=== PATIENT | male | born 1950 | race American Indian/Alaskan Native ===

== ENCOUNTER 2017-12-02 06:20 | Inpatient (IN) | payer MEDICARE ==
[2017-12-02] MEDS ORDERED: ASPIRIN PO ONE (06:44)
[2017-12-02] MEDS ORDERED: DUONEB *Not for PRN Use IH ONE (06:45)
--- NOTE | 2017-12-02 06:45 | Emergency Department Report ---
ED Shortness of Breath HPI - General Stated Complaint: ASYA Time Seen by Provider: 12/02/17 06:38 Source: patient, EMS Mode of arrival: Stretcher Limitations: No Limitations - History of Present Illness Initial Comments: Arlette and is a 67-year-old male with no known past medical history and no medications presents to the emergency room via EMS for hypoxic and shortness of breath. Patient was given albuterol route by EMS. Patient states she has a long smoking history. Patient states she has never been diagnosed as COPD or asthma. Patient states he can get a deep breath. Patient denies fever and chills. Patient also complains of a new onset of cough. Patient states the cough is dry and nonproductive. Patient states all the symptoms started this morning. MD Complaint: shortness of breath -: Sudden Severity: severe Pain Scale: 0 Consistency: constant Improves With: oxygen, bronchodilators, upright position Worsens With: lying flat, exertion, coughing, inspiration Associated Symptoms: cough, orhopnia Treatments Prior to Arrival: oxygen, bronchodilator - Related Data Home Oxygen Therapy: No Home Medications Medication Instructions Recorded Confirmed Last Taken No Known Home Medications [No 12/02/17 12/02/17 Unknown Reported Home Medications] Allergies Allergy/AdvReac Type Severity Reaction Status Date / Time No Known Allergies Allergy Verified 12/02/17 12:50 ED Review of Systems ROS: Stated complaint: ASYA Other details as noted in HPI Constitutional: denies: chills, fever Eyes: denies: eye pain, eye discharge, vision change ENT: denies: ear pain, throat pain Respiratory: cough, orthopnea, shortness of breath, SOB with exertion, SOB at rest. denies: wheezing Cardiovascular: denies: chest pain, palpitations Endocrine: no symptoms reported Gastrointestinal: denies: abdominal pain, nausea, diarrhea Genitourinary: denies: urgency, dysuria Musculoskeletal: denies: back pain, joint swelling, arthralgia Skin: denies: rash, lesions Neurological: denies: headache, weakness, paresthesias Psychiatric: denies: anxiety, depression Hematological/Lymphatic: denies: easy bleeding, easy bruising ED Past Medical Hx - Past Medical History Previous Medical History?: No - Surgical History Past Surgical History?: No - Family History Family history: no significant - Social History Smoking Status: Current Every Day Smoker Substance Use Type: None - Medications Home Medications: Home Medications Medication Instructions Recorded Confirmed Last Taken Type No Known Home Medications [No 12/02/17 12/02/17 Unknown History Reported Home Medications] ED Physical Exam - General Limitations: No Limitations General appearance: alert, in no apparent distress - Head Head exam: Present: atraumatic, normocephalic - Eye Eye exam: Present: normal appearance, PERRL, EOMI Pupils: Present: normal accommodation - ENT ENT exam: Present: mucous membranes moist - Neck Neck exam: Present: normal inspection - Respiratory Respiratory exam: Present: normal lung sounds bilaterally, respiratory distress , wheezes, rales, accessory muscle use, decreased breath sounds, prolonged expiratory - Cardiovascular Cardiovascular Exam: Present: regular rate, normal rhythm. Absent: systolic murmur, diastolic murmur, rubs, gallop - GI/Abdominal GI/Abdominal exam: Present: soft, normal bowel sounds - Rectal Rectal exam: Present: deferred - Extremities Exam Extremities exam: Present: normal inspection - Back Exam Back exam: Present: normal inspection - Neurological Exam Neurological exam: Present: alert, oriented X3 - Psychiatric Psychiatric exam: Present: normal affect, normal mood - Skin Skin exam: Present: warm, dry, intact, normal color. Absent: rash ED Course Vital Signs 12/02/17 12/02/17 12/02/17 06:34 06:41 06:46 Temperature 98.6 F Pulse Rate 103 H 102 H 105 H Pulse Rate [ Anterior Bilateral Throughout] Respiratory 28 H 26 H 24 Rate Respiratory Rate [Anterior Bilateral Throughout] Blood Pressure 186/104 181/97 O2 Sat by Pulse 87 89 96 Oximetry 12/02/17 12/02/17 12/02/17 06:53 07:00 07:15 Temperature Pulse Rate 100 H 101 H Pulse Rate [ 101 H Anterior Bilateral Throughout] Respiratory 26 H 24 Rate Respiratory 18 Rate [Anterior Bilateral Throughout] Blood Pressure 186/104 180/93 O2 Sat by Pulse 96 95 Oximetry 12/02/17 12/02/17 12/02/17 07:30 07:45 08:00 Temperature Pulse Rate 97 H 95 H 95 H Pulse Rate [ Anterior Bilateral Throughout] Respiratory 24 22 21 Rate Respiratory Rate [Anterior Bilateral Throughout] Blood Pressure 181/96 183/94 180/98 O2 Sat by Pulse 98 96 95 Oximetry 12/02/17 08:15 Temperature Pulse Rate 95 H Pulse Rate [ Anterior Bilateral Throughout] Respiratory 20 Rate Respiratory Rate [Anterior Bilateral Throughout] Blood Pressure 191/103 O2 Sat by Pulse 95 Oximetry - Reevaluation(s) Reevaluation #1: 12/02/17 07:17 Oxygenation has improved and working breathing has improved. Lungs are clear to auscultation except for matthias lower rales. . Patient improving 12/02/17 10:34 Reevaluation #2: Hospitalist contacted for admission. Hospitalist to assume care of the patient. Discussed plan of care with patient and patient agrees to admission and plan of care. Discussed all results with patient 12/02/17 10:16 ED Medical Decision Making - Lab Data Result diagrams: 12/02/17 07:11 12/02/17 07:11 - EKG Data -: EKG Interpreted by Me EKG shows normal: sinus rhythm, axis, intervals, QRS complexes, ST-T waves Rate: tachycardia - EKG Data Interpretation: LVH - Radiology Data Radiology results: report reviewed, image reviewed cxr - nl. ct chest reviewed. - Medical Decision Making She is 67-year-old male presents emergency room with shortness of breath and hypoxia. Patient found to have congestive heart failure and possible COPD exacerbation. Patient did not have these previous diagnosis. Patient will be admitted to the hospitalist service for further evaluation and treatment. - Differential Diagnosis . acs. chf, sob. copd. copd exac. Hypoxia Critical Care Time: Yes Critical care attestation.: If time is entered above; I have spent that time in minutes in the direct care of this critically ill patient, excluding procedure time. Critical Care Time: 45 minutes spent for critical care time ED Disposition Clinical Impression: Hypoxia, Shortness of breath, Cough, Elevated d-dimer, Elevated troponin, Elevated brain natriuretic peptide (BNP) level, COPD exacerbation Congestive heart failure Qualifiers: Heart failure type: unspecified Heart failure chronicity: acute Qualified Code( s): I50.9 - Heart failure, unspecified Disposition: OP ADMIT IP TO THIS HOSP Is pt being admited?: Yes Does the pt Need Aspirin: No Condition: Critical Time of Disposition: 10:00
--- NOTE | 2017-12-02 07:02 | XRay Report ---
FINAL REPORT EXAM: XR CHEST 1V AP HISTORY: Dyspnea TECHNIQUE: A portable upright view of the chest was submitted FINDINGS: The heart size and vascularity appear normal. There are no localized infiltrates or effusions. There are EKG leads overlying the chest wall. The bones soft tissues do not show any acute changes. IMPRESSION: No active chest disease.
[2017-12-02 07:24] LABS: Basophils % (Auto) 0.3 % (0.0-1.8); Eosinophils # (Auto) 0.1 K/mm3 (0.0-0.4); Hematocrit 44.4 % (35.5-45.6); Hemoglobin 15.1 gm/dl (11.8-15.2); Lymphocytes # (Auto) 1.6 K/mm3 (1.2-5.4); Lymphocytes % (Auto) 13.3 % (13.4-35.0); Mean Corpuscular HGB Conc 34 % (32-34); Mean Corpuscular Hemoglobin 33 pg (28-32); Mean Corpuscular Volume 96 fl (84-94); Platelet Count 225 K/mm3 (140-440); Red Blood Count 4.63 M/mm3 (3.65-5.03); Red Cell Distribution Width 13.2 % (13.2-15.2)
[2017-12-02 07:36] LABS: INR 0.93 (0.87-1.13); Partial Thromboplastin Time 33.9 Sec. (24.2-36.6)
[2017-12-02 07:43] LABS: Creatine Kinase MB 2.1 ng/mL (0.0-4.0)
[2017-12-02 07:45] LABS: Alanine Aminotransferase 13 units/L (7-56); Albumin 3.7 g/dL (3.9-5); BUN/Creatinine Ratio 11; Blood Urea Nitrogen 14 mg/dL (9-20); Hemolysis Index 4
[2017-12-02 07:57] LABS: Chol/HDL Ratio 4.82 %; HDL Cholesterol 40 mg/dL (40-59); LDL Cholesterol,Direct 156 mg/dL (50-130)
--- NOTE | 2017-12-02 09:47 | Cat Scan Report ---
FINAL REPORT EXAM: CT ANGIO CHEST HISTORY: sob COMPARISON: Chest radiograph performed on 12/02/2017 TECHNIQUE: Multiple contiguous axial images were obtained from the thoracic inlet to the upper abdomen after administration of IV contrast. Reformatted sagittal and coronal images were available for review. FINDINGS: Medical devices: None. Thyroid: Normal. Lymph nodes: Pretracheal and prevascular lymphadenopathy, measuring up to 1.3 centimeters in short axis. Vasculature: The main pulmonary artery and its branches are patent, without evidence of pulmonary embolism. There is a normal caliber of the thoracic aorta with a conventional branching pattern of the aortic arch. Heart: Normal heart size. Mild coronary artery calcifications. Other mediastinal structures: Small hiatal hernia. Lung parenchyma: Peribronchovascular ground-glass opacities in the right upper lobe. Areas of atelectasis in the bilateral lower lobes. Airways: Patent. No bronchiectasis. Pleura: Trace bilateral pleural effusions. Chest wall and spine: No suspicious osseous lesions. No acute fracture or dislocation. Upper Abdomen: Calcified gallstones. No pericholecystic fluid or gallbladder wall thickening.. IMPRESSION: Peribronchovascular ground-glass opacities in the right upper lobe. Findings may represent infectious infiltrate versus focal edema. Pulmonary edema isolated to the right upper lobe can be seen in the setting of mitral valve regurgitation. Trace bilateral pleural effusions with associated atelectasis. Pretracheal and prevascular lymphadenopathy, likely reactive. Cholelithiasis without evidence for cholecystitis.
[2017-12-02] MEDS ORDERED: LASIX IV ONE (10:16)
[2017-12-02] MEDS ORDERED: ZOFRAN IV PRN (12:43)
[2017-12-02] MEDS ORDERED: PERCOCET 5/325 PO PRN (12:43)
[2017-12-02] MEDS ORDERED: TYLENOL PO PRN (12:43)
[2017-12-02] MEDS ORDERED: SODIUM CHLORIDE FLUSH SYRINGE 10 ML IV PRN (12:43)
[2017-12-02] MEDS ORDERED: ZITHROMAX 500 MG in NACL 0.9% 250ML 250 ML IV ONE (12:48)
[2017-12-02] MEDS ORDERED: LOVENOX SUB-Q ONE (14:19)
[2017-12-02] MEDS: LOVENOX SUB-Q SCH (14:25)
[2017-12-02] MEDS: DUONEB *Not for PRN Use IH SCH ×2 (16:36→20:16)
--- NOTE | 2017-12-02 20:22 | History and Physical Report ---
History of Present Illness Date of examination: 12/02/17 Date of admission: 12/02/17 10:31 Chief complaint: Shortness of breath History of present illness: Patient is a 67-year-old male without any significant past medical history. Patient states at some time he was told he had hypertension but was no longer taking any since for this. Over the past week patient has had a progressive shortness of breath. At this particular time he says it was not associated with coughing. Patient describes shortness of breath more as dyspnea on exertion. Walking to the car. Walking outside when it was hot. States symptoms progressively got worse and he had to come to the emergency room. Upon ER visit patient was found to be in hypoxic respiratory failure. He received oxygen nebulizers and a course of diuretics and in fact he feels much better today. Paste and resting comfortably in bed on 2 L of oxygen. Sats are 97%. Patient denies any time chest pain no orthopnea no PND. Patient denies productive cough denies sick contacts. Patient states he was his normal state of health until a week ago. Past History Past Medical History: denies: acute HI, atrial fib, arrhythmia, anemia, arthritis, CAD, cancer, COPD, diabetes, ESRD, heart failure, hepatitis, PVD, pulmonary embolism Past Surgical History: No surgical history Social history: single, lives with family, smoking, full code. denies: alcohol abuse, prescription drug abuse Family history: hypertension Medications and Allergies Allergies Allergy/AdvReac Type Severity Reaction Status Date / Time No Known Allergies Allergy Verified 12/02/17 12:50 Home Medications Medication Instructions Recorded Confirmed Last Taken Type No Known Home Medications [No 12/02/17 12/02/17 Unknown History Reported Home Medications] Active Meds: Active Medications Acetaminophen (Tylenol) 650 mg PO Q4H PRN PRN Reason: Pain MILD(1-3)/Fever >100.5/CISNEROS Albuterol/Ipratropium (Duoneb *Not For Prn Use*) 1 ampul IH Q6HRT [facility] Last Admin: 12/02/17 20:16 Dose: 1 ampul Enoxaparin Sodium (Lovenox) 40 mg SUB-Q QDAY [facility] Last Admin: 12/02/17 14:25 Dose: 40 mg Famotidine (Pepcid) 10 mg PO BID [facility] Methylprednisolone Sodium Succinate (Solu-Medrol) 40 mg IV Q12HR [facility] Last Admin: 12/02/17 14:25 Dose: 40 mg Ondansetron HCl (Zofran) 4 mg IV Q8H PRN PRN Reason: Nausea And Vomiting Oxycodone/Acetaminophen (Percocet 5/325) 1 tab PO Q6H PRN PRN Reason: Pain, Moderate (4-6) Sodium Chloride (Sodium Chloride Flush Syringe 10 Ml) 10 ml IV BID [facility] Sodium Chloride (Sodium Chloride Flush Syringe 10 Ml) 10 ml IV PRN PRN PRN Reason: LINE FLUSH Review of Systems Constitutional: fatigue, weakness, no weight loss, no weight gain, no fever, no chills, no sweats, no night sweats, no anorexia, no malaise, no lethargy, no chronic headaches, no poor appetite, no daytime sleepiness, no chronic pain Ears, nose, mouth and throat: no ear pain, no ear discharge, no decreased hearing, no nose pain, no epistaxis, no bleeding gums, no dysphagia, no hoarseness, no swelling in throat, no post-nasal drip, no vertigo, no pain front of neck, no neck fullness/pressure Cardiovascular: shortness of breath, dyspnea on exertion, high blood pressure, decreased exercise tolerance, no chest pain, no orthopnea, no palpitations, no rapid/irregular heart beat, no edema, no syncope, no lightheadedness, no paroxysmal nocturnal dyspnea, no claudication, no phlebitis, no leg edema Respiratory: shortness of breath, dyspnea on exertion, no cough, no cough with sputum, no excessive sputum, no hemoptysis, no congestion, no wheezing, no pain , no sleep apnea, no respiratory infections Gastrointestinal: no vomiting, no diarrhea, no constipation, no change in bowel habits, no BRBPR, no melena, no heartburn, no excessive gas, no early satiety Rectal: no incontinence, no discharge Musculoskeletal: morning stiffness, muscle weakness, no neck pain, no shooting arm pain, no low back pain, no shooting leg pain, no leg numbness/tingling, no hot joints, no frequent falls, no loss of height, no arthritis Integumentary: no unusual bruising Neurological: weakness, no paralysis, no numbness, no tingling, no syncope, no headaches, no convulsions, no change in mentation, no changes in smell/taste, no gait dysfunction, no double vision, no hearing difficulties Psychiatric: no memory loss, no change in sleep habits, no sleep disturbances, no insomnia, no hypersomnia, no suicidal ideation, no disorientation, no paranoia, no depression, no anxiety attacks, no confusion, no irritability, no sadness/tearfullness Endocrine: no cold intolerance, no polyphagia, no excessive thirst, no excessive sweating, no increase in ring/shoe/hat size, no palpatations, no other Hematologic/Lymphatic: no thrombophilia Allergic/Immunologic: no persistent infections Exam - Constitutional Vitals: Temp Pulse Resp BP Pulse Ox 98.6 F 95 H 20 191/103 95 12/02/17 06:41 12/02/17 08:15 12/02/17 08:15 12/02/17 08:15 12/02/17 08:15 General appearance: Present: no acute distress, well-nourished - EENT Eyes: Present: PERRL. Absent: discharge ENT: hearing intact, clear oral mucosa, poor dentition, no thrush, no ulcerations - Neck Neck: Present: supple, normal ROM. Absent: enlarged thyroid - Respiratory Respiratory effort: normal Respiratory: bilateral: diminished, rales (bilateral radials and rhonchi.) - Cardiovascular Rhythm: regular Heart Sounds: Present: S1 & S2. Absent: rub, click - Extremities Extremities: pulses symmetrical, No edema, normal temperature, normal color, Full ROM Peripheral Pulses: within normal limits - Abdominal General gastrointestinal: Present: soft, non-tender, non-distended, normal bowel sounds Male genitourinary: Present: normal - Integumentary Integumentary: Present: clear, warm, dry - Musculoskeletal Musculoskeletal: gait normal, strength equal bilaterally - Psychiatric Psychiatric: appropriate mood/affect, intact judgment & insight - Neurologic Neurologic: CNII-XII intact, moves all extremities Results - Labs CBC & Chem 7: 12/02/17 07:11 12/02/17 07:11 Labs: Laboratory Last Values WBC 12.3 K/mm3 (4.5-11.0) H 12/02/17 07:11 RBC 4.63 M/mm3 (3.65-5.03) 12/02/17 07:11 Hgb 15.1 gm/dl (11.8-15.2) 12/02/17 07:11 Hct 44.4 % (35.5-45.6) 12/02/17 07:11 MCV 96 fl (84-94) H 12/02/17 07:11 MCH 33 pg (28-32) H 12/02/17 07:11 MCHC 34 % (32-34) 12/02/17 07:11 RDW 13.2 % (13.2-15.2) 12/02/17 07:11 Plt Count 225 K/mm3 (140-440) 12/02/17 07:11 Lymph % (Auto) 13.3 % (13.4-35.0) L 12/02/17 07:11 Gem % (Auto) 8.0 % (0.0-7.3) H 12/02/17 07:11 Eos % (Auto) 1.0 % (0.0-4.3) 12/02/17 07:11 Baso % (Auto) 0.3 % (0.0-1.8) 12/02/17 07:11 Lymph # 1.6 K/mm3 (1.2-5.4) 12/02/17 07:11 Gem # 1.0 K/mm3 (0.0-0.8) H 12/02/17 07:11 Eos # 0.1 K/mm3 (0.0-0.4) 12/02/17 07:11 Baso # 0.0 K/mm3 (0.0-0.1) 12/02/17 07:11 Seg Neutrophils % 77.4 % (40.0-70.0) H 12/02/17 07:11 Seg Neutrophils # 9.5 K/mm3 (1.8-7.7) H 12/02/17 07:11 PT 12.9 Sec. (12.2-14.9) 12/02/17 07:11 INR 0.93 (0.87-1.13) 12/02/17 07:11 APTT 33.9 Sec. (24.2-36.6) 12/02/17 07:11 D-Dimer 441.69 ng/mlDDU (0-234) H 12/02/17 07:11 Sodium 143 mmol/L (137-145) 12/02/17 07:11 Potassium 3.6 mmol/L (3.6-5.0) 12/02/17 07:11 Chloride 103.1 mmol/L (98-107) 12/02/17 07:11 Carbon Dioxide 27 mmol/L (22-30) 12/02/17 07:11 Anion Gap 17 mmol/L 12/02/17 07:11 BUN 14 mg/dL (9-20) 12/02/17 07:11 Creatinine 1.3 mg/dL (0.8-1.5) 12/02/17 07:11 Estimated GFR > 60 ml/min 12/02/17 07:11 BUN/Creatinine Ratio 11 % 12/02/17 07:11 Glucose 119 mg/dL (75-100) H 12/02/17 07:11 Lactic Acid 2.40 mmol/L (0.7-2.0) H* 12/02/17 07:11 Calcium 9.0 mg/dL (8.4-10.2) 12/02/17 07:11 Total Bilirubin 0.30 mg/dL (0.1-1.2) 12/02/17 07:11 AST 17 units/L (5-40) 12/02/17 07:11 ALT 13 units/L (7-56) 12/02/17 07:11 Alkaline Phosphatase 52 units/L (35-129) 12/02/17 07:11 Total Creatine Kinase 106 units/L (55-170) 12/02/17 07:11 CK-MB (CK-2) 2.1 ng/mL (0.0-4.0) 12/02/17 07:11 CK-MB (CK-2) Rel Index 1.9 (0-4) 12/02/17 07:11 Troponin T 0.032 ng/mL (0.00-0.029) H 12/02/17 07:11 NT-Pro-B Natriuret Pep 2428 pg/mL (0-900) H 12/02/17 07:11 Total Protein 8.1 g/dL (6.3-8.2) 12/02/17 07:11 Albumin 3.7 g/dL (3.9-5) L 12/02/17 07:11 Albumin/Globulin Ratio 0.8 % 12/02/17 07:11 Triglycerides 82 mg/dL (2-149) 12/02/17 07:11 Cholesterol 193 mg/dL (50-199) 12/02/17 07:11 LDL Cholesterol Direct 156 mg/dL (50-130) H 12/02/17 07:11 HDL Cholesterol 40 mg/dL (40-59) 12/02/17 07:11 Cholesterol/HDL Ratio 4.82 % 12/02/17 07:11 Assessment and Plan Advance Directives: Yes VTE prophylaxis?: Chemical Plan of care discussed with patient/family: Yes - Patient Problems (1) COPD exacerbation Current Visit: Yes Status: Acute Plan to address problem: At present unable to really identify exact cause of patient's shortness of breath. Most likely multifactorial. I think COPD and his [id number] history placed some role. We'll continue nebulizers oxygen steroids. Would treat with empiric antibiotics. CT scan showed ground glass appearance in this possibly could be infectious therefore add broad-spectrum antibiotic azithromycin. Patient does not appear acutely septic at this time. Treat with supportive care antipyretics broad-spectrum antibiotics (2) Congestive heart failure Current Visit: Yes Status: Acute Qualifiers: Heart failure type: unspecified Heart failure chronicity: acute Qualified Code(s): I50.9 - Heart failure, unspecified (3) Elevated brain natriuretic peptide (BNP) level Current Visit: Yes Status: Acute (4) Elevated d-dimer Current Visit: Yes Status: Acute (5) Shortness of breath Current Visit: Yes Status: Acute Plan to address problem: Multifactorial seee acute hospital hypoxic respiratory failure will take a multivitamin dimension approach including treatment of COPD treatment of congestive heart failure caused by malignant hypertension. (6) Acute and chronic respiratory failure with hypoxia Current Visit: Yes Status: Acute Plan to address problem: Patient respiratory failure most likely multifactorial. Smoking and COPD as well as malignant hypertension causing cardiac heart failure and congestive heart failure. Patient with elevated BNP will need to follow-up echocardiogram results and be more aggressive blood pressure control. (7) Malignant hypertension w/o heart disease, with chronic kidney disease Current Visit: Yes Status: Acute Plan to address problem: At present patient has malignant hypertension. I think this is most likely etiology to cause patient's heart failure and pulmonary edema. While we're treating for infection would also add diuretics, Solu-Medrol 02. Add labetalol 50 mg twice a day hydralazine when necessary in losartan 100 mg daily. Titrate blood pressure medications accordingly.
[2017-12-02] MEDS: COZAAR PO SCH (21:22)
[2017-12-02] MEDS: PEPCID PO SCH (21:22)
[2017-12-02] MEDS: LOPRESSOR PO SCH (21:22)
[2017-12-02] MEDS: SODIUM CHLORIDE FLUSH SYRINGE 10 ML IV SCH (21:23)
[2017-12-03] MEDS: DUONEB *Not for PRN Use IH SCH ×2 (03:14→08:52)
[2017-12-03 06:30] LABS: Basophils % (Auto) 0.1 % (0.0-1.8); Hematocrit 40.9 % (35.5-45.6); Lymphocytes # (Auto) 0.8 K/mm3 (1.2-5.4); Lymphocytes % (Auto) 8.3 % (13.4-35.0); Mean Corpuscular HGB Conc 34 % (32-34); Mean Corpuscular Hemoglobin 33 pg (28-32); Mean Corpuscular Volume 96 fl (84-94); Monocytes # (Auto) 0.6 K/mm3 (0.0-0.8); Monocytes % (Auto) 5.9 % (0.0-7.3); Platelet Count 210 K/mm3 (140-440); Red Blood Count 4.27 M/mm3 (3.65-5.03); Red Cell Distribution Width 13.5 % (13.2-15.2)
[2017-12-03 06:56] LABS: Albumin 3.5 g/dL (3.9-5); Calcium 8.8 mg/dL (8.4-10.2)
[2017-12-03] MEDS: COZAAR PO SCH (10:28)
[2017-12-03] MEDS: LOPRESSOR PO SCH ×2 (10:29→21:34)
[2017-12-03] MEDS: LOVENOX SUB-Q SCH ×2 (10:29→21:34)
[2017-12-03] MEDS: PEPCID PO SCH ×2 (10:29→21:34)
[2017-12-03] MEDS: SODIUM CHLORIDE FLUSH SYRINGE 10 ML IV SCH ×2 (10:30→21:35)
--- NOTE | 2017-12-03 12:09 | Progress Note ---
Assessment and Plan Patient is a 67-year-old male without any significant past medical history. Patient states at some time he was told he had hypertension but was no longer taking any since for this. Over the past week patient has had a progressive shortness of breath. At this particular time he says it was not associated with coughing. Patient describes shortness of breath more as dyspnea on exertion. Walking to the car. Walking outside when it was hot. States symptoms progressively got worse and he had to come to the emergency room. Upon ER visit patient was found to be in hypoxic respiratory failure. He received oxygen nebulizers and a course of diuretics and in fact he feels much better today. Paste and resting comfortably in bed on 2 L of oxygen. Sats are 97%. Patient denies any time chest pain no orthopnea no PND. Patient denies productive cough denies sick contacts. Patient states he was his normal state of health until a week ago. - Systolic Congestive heart failure Has elevated BNP of 2428 Strict input and outputs, daily weights, Frandy and beta zach, diuresis Echo showed ejection fraction of 45-50% with mildly reduced systolic function -Elevated d-dimer CT chest negative for pulmonary embolism - Shortness of breath Most likely secondary to systolic heart failure To continue with diuresis, - Acute and chronic respiratory failure with hypoxia Patient respiratory failure most likely multifactorial. Smoking and COPD as well as malignant hypertension causing cardiac heart failure and congestive heart failure. Patient with elevated BNP will need to follow-up echocardiogram results and be more aggressive blood pressure control. - Atrial fibrillation Recorded on the morning to- 12/02/2017 With fully anticoagulate - Malignant hypertension w/o heart disease, - cardiomegaly Continue ACEI and spironolactone - Acute kidney injury predominantly prerenal Monitor BUN and creatinine. - Lactic acidosis Patient has no fever or leukocytosis We will trend lactic acid level - DVT prophylaxis with Lovenox and GI with Pepcid Subjective Date of service: 12/03/17 Principal diagnosis: shortness of breath, systolic of heart failure, Interval history: Patient still has shortness of breath. Objective - Exam Narrative Exam: Constitutional: Well-nourished well-developed. Morbidly obese. In no distress Head: Normocephalic atraumatic Eyes: Pupils are equal round and reactive to light Nose: No enlarged turbinates, no septal deviation. Mouth: Moist mucous membranes. Neck: Supple no thyromegaly. No bruit. No JVD Heart: Regular rate and rhythm, S1-S2 abnormal. No rubs murmurs or gallop Lungs: Decreased breath sounds bilaterally. no rales or rhonchi Abdomen: Soft, nontender. Bowel sound are present. Extremities: No edema no cyanosis and no clubbing. Neuro: Alert oriented Oriented x3. No focal sensory or motor deficit. Skin: No rashes no hyperemic spots Psychiatry: Euthymic. Calm. - Constitutional Vitals: Vital Signs - 12hr 12/03/17 12/03/17 12/03/17 03:15 03:31 04:55 Temperature Pulse Rate 91 H Pulse Rate [ 88 91 H Anterior Bilateral Throughout] Pulse Rate [ From Monitor] Pulse Rate [ Right Radial] Respiratory 18 Rate Respiratory 20 20 Rate [Anterior Bilateral Throughout] Blood Pressure 120/71 Blood Pressure [Right] O2 Sat by Pulse 96 Oximetry 12/03/17 12/03/17 12/03/17 07:47 08:45 08:54 Temperature 98.1 F Pulse Rate 82 Pulse Rate [ 82 Anterior Bilateral Throughout] Pulse Rate [ From Monitor] Pulse Rate [ Right Radial] Respiratory 20 Rate Respiratory 18 Rate [Anterior Bilateral Throughout] Blood Pressure 139/73 Blood Pressure [Right] O2 Sat by Pulse 98 97 Oximetry 12/03/17 12/03/17 12/03/17 08:56 08:57 09:03 Temperature 98.1 F Pulse Rate 82 Pulse Rate [ 85 Anterior Bilateral Throughout] Pulse Rate [ From Monitor] Pulse Rate [ Right Radial] Respiratory 20 Rate Respiratory 18 Rate [Anterior Bilateral Throughout] Blood Pressure Blood Pressure 139/73 [Right] O2 Sat by Pulse 97 99 Oximetry 12/03/17 10:00 Temperature Pulse Rate Pulse Rate [ Anterior Bilateral Throughout] Pulse Rate [ 125 H From Monitor] Pulse Rate [ 106 H Right Radial] Respiratory 18 Rate Respiratory Rate [Anterior Bilateral Throughout] Blood Pressure Blood Pressure [Right] O2 Sat by Pulse 100 Oximetry - Labs CBC & Chem 7: 12/03/17 05:51 12/03/17 05:51 Labs: Abnormal lab results 12/03/17 12/03/17 Range/Units 05:51 05:51 MCV 96 H (84-94) fl MCH 33 H (28-32) pg Lymph % (Auto) 8.3 L (13.4-35.0) % Lymph # 0.8 L (1.2-5.4) K/mm3 Seg Neutrophils % 85.7 H (40.0-70.0) % Seg Neutrophils # 8.4 H (1.8-7.7) K/mm3 Carbon Dioxide 21 L (22-30) mmol/L BUN 27 H (9-20) mg/dL Creatinine 1.7 H (0.8-1.5) mg/dL Glucose 146 H (75-100) mg/dL Albumin 3.5 L (3.9-5) g/dL
[2017-12-03] MEDS ORDERED: DUONEB *Not for PRN Use IH SCH (14:00)
--- NOTE | 2017-12-03 15:14 | Consultation ---
History of Present Illness Consult date: 12/03/17 Requesting physician: ESTIVEN JUNG Reason for consult: dyspnea History of present illness: 67 y/o smoker, known HTN admitted with dyspnea for the last several days. Mainly with exertion. No cough but some wheezing with exertion. Has never seen a lung physician. No diagnosis of COPD. Still smokes but is looking to quit. In the ED was treated with IV lasix and felt much better. Also started on steroids as well. Patient sitting up in bed, on room air, in no distress. Past History Past Medical History: denies: acute IA, atrial fib, arrhythmia, anemia, arthritis, CAD, cancer, COPD, diabetes, ESRD, heart failure, hepatitis, PVD, pulmonary embolism Past Surgical History: No surgical history Social history: single, lives with family, smoking, full code. denies: alcohol abuse, prescription drug abuse Family history: hypertension Medications and Allergies Allergies Allergy/AdvReac Type Severity Reaction Status Date / Time No Known Allergies Allergy Verified 12/02/17 12:50 Home Medications Medication Instructions Recorded Confirmed Last Taken Type No Known Home Medications [No 12/02/17 12/02/17 Unknown History Reported Home Medications] Active Meds: Active Medications Acetaminophen (Tylenol) 650 mg PO Q4H PRN PRN Reason: Pain MILD(1-3)/Fever >100.5/CISNEROS Albuterol/Ipratropium (Duoneb *Not For Prn Use*) 1 ampul IH TIDRT [facility] Last Admin: 12/03/17 13:49 Dose: 1 ampul Enoxaparin Sodium (Lovenox) 40 mg SUB-Q QDAY [facility] Last Admin: 12/03/17 10:29 Dose: 40 mg Famotidine (Pepcid) 10 mg PO BID [facility] Last Admin: 12/03/17 10:29 Dose: 10 mg Hydralazine HCl (Apresoline) 10 mg IV Q4H PRN PRN Reason: Hypertension Losartan Potassium (Cozaar) 50 mg PO QDAY [facility] Last Admin: 12/03/17 10:28 Dose: 50 mg Methylprednisolone Sodium Succinate (Solu-Medrol) 40 mg IV Q12HR [facility] Last Admin: 12/03/17 10:30 Dose: 40 mg Metoprolol Tartrate (Lopressor) 50 mg PO BID [facility] Last Admin: 12/03/17 10:29 Dose: 50 mg Ondansetron HCl (Zofran) 4 mg IV Q8H PRN PRN Reason: Nausea And Vomiting Oxycodone/Acetaminophen (Percocet 5/325) 1 tab PO Q6H PRN PRN Reason: Pain, Moderate (4-6) Sodium Chloride (Sodium Chloride Flush Syringe 10 Ml) 10 ml IV BID TYRONE Last Admin: 12/03/17 10:30 Dose: 10 ml Sodium Chloride (Sodium Chloride Flush Syringe 10 Ml) 10 ml IV PRN PRN PRN Reason: LINE FLUSH Review of Systems All systems: negative Physical Examination Vital signs: Vital Signs Pulse Resp Pulse Ox 103 H 28 H 87 12/02/17 06:34 12/02/17 06:34 12/02/17 06:34 General appearance: no acute distress, alert Eyes: injected ENT: oropharynx dry Neck: supple Effort: normal Ascultation: Bilateral: clear Percussion: Bilateral: not dull Tactile fremitus: Bilateral: normal Cardiovascular: regular rate and rhythm Gastrointestinal: normoactive bowel sounds, soft, non-tender Results - Laboratory Findings CBC and BMP: 12/03/17 05:51 12/03/17 05:51 PT/INR, D-dimer PT 12.9 Sec. (12.2-14.9) 12/02/17 07:11 INR 0.93 (0.87-1.13) 12/02/17 07:11 D-Dimer 441.69 ng/mlDDU (0-234) H 12/02/17 07:11 Abnormal lab findings: Abnormal Labs 12/02/17 12/02/17 12/02/17 07:11 07:11 07:11 WBC 12.3 H MCV 96 H MCH 33 H Lymph % (Auto) 13.3 L [place] % (Auto) 8.0 H Lymph # [place] # 1.0 H Seg Neutrophils % 77.4 H Seg Neutrophils # 9.5 H D-Dimer 441.69 H Carbon Dioxide BUN Creatinine Glucose 119 H Lactic Acid Troponin T 0.032 H NT-Pro-B Natriuret Pep Albumin 3.7 L LDL Cholesterol Direct 156 H 12/02/17 12/02/17 12/03/17 07:11 07:11 05:51 WBC MCV 96 H MCH 33 H Lymph % (Auto) 8.3 L [place] % (Auto) Lymph # 0.8 L [place] # Seg Neutrophils % 85.7 H Seg Neutrophils # 8.4 H D-Dimer Carbon Dioxide BUN Creatinine Glucose Lactic Acid 2.40 H* Troponin T NT-Pro-B Natriuret Pep 2428 H Albumin LDL Cholesterol Direct 12/03/17 05:51 WBC MCV MCH Lymph % (Auto) [place] % (Auto) Lymph # [place] # Seg Neutrophils % Seg Neutrophils # D-Dimer Carbon Dioxide 21 L BUN 27 H Creatinine 1.7 H Glucose 146 H Lactic Acid Troponin T NT-Pro-B Natriuret Pep Albumin 3.5 L LDL Cholesterol Direct - Diagnostic Findings CT scan - chest: image reviewed (Ground glass main in the right upper lobe, otherwise no acute lung changes. Agree with reactive edema) Assessment and Plan 67 y/o male with hypertension, admitted with dyspnea, found to have elevated BNP and GGO's on CT of chest. 1. Most likely diastolic heart failure given prolonged hypertension. 2. No structural evidence of COPD seen on CT of chest. 3. Patient not currently wheezing 4. Will stop steroids and neb treatments 5. Can follow up in the office for walk test and full PFT 6. BP control per primary Will sign off, will make follow up appointment and provided patient with a card.
[2017-12-03] MEDS ORDERED: DUONEB *Not for PRN Use IH ONE (19:46)
[2017-12-03] MEDS ORDERED: METHERGINE IM ONE (20:58)
[2017-12-03] MEDS ORDERED: LOVENOX SUB-Q SCH (22:00)
[2017-12-04] MEDS: LOVENOX SUB-Q SCH ×2 (11:56→22:37)
[2017-12-04] MEDS: COZAAR PO SCH (11:56)
[2017-12-04] MEDS: PEPCID PO SCH ×2 (11:56→22:37)
[2017-12-04] MEDS: SODIUM CHLORIDE FLUSH SYRINGE 10 ML IV SCH ×2 (11:56→22:41)
[2017-12-04] MEDS: LOPRESSOR PO SCH ×2 (11:56→22:40)
--- NOTE | 2017-12-04 12:38 | Progress Note ---
Assessment and Plan Assessment and Plan: Patient is a 67-year-old male without any significant past medical history. Patient states at some time he was told he had hypertension but was no longer taking any since for this. Over the past week patient has had a progressive shortness of breath. At this particular time he says it was not associated with coughing. Patient describes shortness of breath more as dyspnea on exertion. Walking to the car. Walking outside when it was hot. States symptoms progressively got worse and he had to come to the emergency room. Upon ER visit patient was found to be in hypoxic respiratory failure. He received oxygen nebulizers and a course of diuretics and in fact he feels much better today. Paste and resting comfortably in bed on 2 L of oxygen. Sats are 97%. Patient denies any time chest pain no orthopnea no PND. Patient denies productive cough denies sick contacts. Patient states he was his normal state of health until a week ago. - Systolic Congestive heart failure Has elevated BNP of 2428 Strict input and outputs, daily weights, Frandy and beta zach, diuresis Echo showed ejection fraction of 45-50% with mildly reduced systolic function -Elevated d-dimer CT chest negative for pulmonary embolism - Shortness of breath Most likely secondary to systolic heart failure To continue with diuresis, - Acute and chronic respiratory failure with hypoxia Patient respiratory failure most likely multifactorial. Smoking and COPD as well as malignant hypertension causing cardiac heart failure and congestive heart failure. Patient with elevated BNP will need to follow-up echocardiogram results and be more aggressive blood pressure control. - Atrial fibrillation Recorded on the morning to- 12/02/2017 With fully anticoagulate - Malignant hypertension w/o heart disease, - cardiomegaly Continue ACEI and spironolactone - Acute kidney injury predominantly prerenal Monitor BUN and creatinine. - Lactic acidosis Patient has no fever or leukocytosis We will trend lactic acid level - DVT prophylaxis with Lovenox and GI with Pepcid Probable discharge tomorrow Subjective Date of service: 12/04/17 Principal diagnosis: shortness of breath, systolic of heart failure, Interval history: Symptomatically better Objective - Constitutional Vitals: Vital Signs - 12hr 12/04/17 12/04/17 12/04/17 05:01 07:50 08:00 Temperature 98.1 F 98.7 F Pulse Rate 91 H 85 Respiratory 18 20 Rate Blood Pressure 126/72 153/90 O2 Sat by Pulse 94 100 Oximetry 12/04/17 12/04/17 12/04/17 10:00 11:52 12:29 Temperature Pulse Rate 86 84 Respiratory 18 Rate Blood Pressure 165/93 O2 Sat by Pulse 98 98 Oximetry General appearance: Present: no acute distress, well-nourished - EENT Eyes: PERRL, EOM intact ENT: hearing intact, clear oral mucosa Ears: bilateral: normal - Neck Neck: supple, normal ROM - Respiratory Respiratory effort: normal Respiratory: bilateral: CTA - Breasts Breasts: normal - Cardiovascular Rhythm: regular Heart Sounds: Present: S1 & S2. Absent: gallop, rub Extremities: pulses intact, No edema, normal color, Full ROM - Gastrointestinal General gastrointestinal: Present: soft, non-tender, non-distended, normal bowel sounds - Genitourinary Male genitourinary: normal - Integumentary Integumentary: clear, warm, dry - Musculoskeletal Musculoskeletal: 1, strength equal bilaterally - Neurologic Neurologic: moves all extremities - Psychiatric Psychiatric: memory intact, appropriate mood/affect, intact judgment & insight - Labs CBC & Chem 7: 12/03/17 05:51 12/03/17 05:51
[2017-12-04] MEDS: NACL 0.9% 1000 ML 1,000 ML IV SCH (15:49)
[2017-12-05] MEDS: APRESOLINE IV PRN (01:01)
[2017-12-05 06:21] LABS: Basophils % (Auto) 0.3 % (0.0-1.8); Eosinophils % (Auto) 0.1 % (0.0-4.3); Lymphocytes % (Auto) 17.6 % (13.4-35.0); Mean Corpuscular HGB Conc 33 % (32-34); Mean Corpuscular Hemoglobin 32 pg (28-32); Mean Corpuscular Volume 96 fl (84-94); Monocytes # (Auto) 1.2 K/mm3 (0.0-0.8); Monocytes % (Auto) 10.6 % (0.0-7.3); Platelet Count 211 K/mm3 (140-440); Red Blood Count 4.39 M/mm3 (3.65-5.03); Red Cell Distribution Width 13.6 % (13.2-15.2)
[2017-12-05] MEDS: NACL 0.9% 1000 ML 1,000 ML IV SCH (06:25)
[2017-12-05 06:33] LABS: BUN/Creatinine Ratio 24; Blood Urea Nitrogen 33 mg/dL (9-20); Calcium 8.4 mg/dL (8.4-10.2); Hemolysis Index 5
[2017-12-05] MEDS ORDERED: PNEUMOVAX 23 IM ONE (12:00)
[2017-12-05] MEDS: PEPCID PO SCH ×2 (12:27→21:48)
[2017-12-05] MEDS: COZAAR PO SCH (12:27)
[2017-12-05] MEDS: LOPRESSOR PO SCH ×2 (12:27→21:48)
[2017-12-05] MEDS: SODIUM CHLORIDE FLUSH SYRINGE 10 ML IV SCH ×2 (12:30→21:47)
--- NOTE | 2017-12-05 16:01 | Progress Note ---
Subjective Date of service: 12/05/17 Principal diagnosis: shortness of breath, systolic of heart failure, Interval history: Pt seen and examined. Still has shortness of breath. Objective - Exam Narrative Exam: Constitutional: Well-nourished well-developed. Morbidly obese. In no distress Head: Normocephalic atraumatic Eyes: Pupils are equal round and reactive to light Nose: No enlarged turbinates, no septal deviation. Mouth: Moist mucous membranes. Neck: Supple no thyromegaly. No bruit. No JVD Heart: Regular rate and rhythm, S1-S2 abnormal. No rubs murmurs or gallop Lungs: Decreased breath sounds bilaterally. no rales or rhonchi Abdomen: Soft, nontender. Bowel sound are present. Extremities: No edema no cyanosis and no clubbing. Neuro: Alert oriented Oriented x3. No focal sensory or motor deficit. Skin: No rashes no hyperemic spots Psychiatry: Euthymic. Calm. - Constitutional Vitals: Vital Signs - 12hr 12/05/17 12/05/17 12/05/17 07:59 08:44 10:00 Temperature 98.9 F Pulse Rate 85 Respiratory 20 Rate Respiratory 18 Rate [Chest] Blood Pressure 145/89 O2 Sat by Pulse 95 95 Oximetry 12/05/17 13:50 Temperature 98.9 F Pulse Rate 80 Respiratory 20 Rate Respiratory Rate [Chest] Blood Pressure 146/92 O2 Sat by Pulse 94 Oximetry - Labs CBC & Chem 7: 12/05/17 04:59 12/05/17 04:59 Labs: Abnormal lab results 12/05/17 12/05/17 Range/Units 04:59 04:59 WBC 11.2 H (4.5-11.0) K/mm3 MCV 96 H (84-94) fl [place] % (Auto) 10.6 H (0.0-7.3) % [place] # 1.2 H (0.0-0.8) K/mm3 Seg Neutrophils % 71.4 H (40.0-70.0) % Seg Neutrophils # 8.0 H (1.8-7.7) K/mm3 Chloride 108.4 H (98-107) mmol/L Carbon Dioxide 21 L (22-30) mmol/L BUN 33 H (9-20) mg/dL
[2017-12-05] MEDS: LOVENOX SUB-Q SCH ×2 (16:07→21:48)
[2017-12-06] MEDS: APRESOLINE IV PRN (02:27)
[2017-12-06] MEDS: SODIUM CHLORIDE FLUSH SYRINGE 10 ML IV SCH (08:45)
[2017-12-06] MEDS: LOPRESSOR PO SCH (08:45)
[2017-12-06] MEDS: PEPCID PO SCH (08:45)
[2017-12-06] MEDS: COZAAR PO SCH (08:45)
[2017-12-06] MEDS: LOVENOX SUB-Q SCH (08:45)
--- NOTE | 2017-12-06 10:55 | Discharge Summary ---
Providers - Providers Date of Admission: 12/02/17 10:31 Attending physician: RIAN OLGUIN MD 12/06/17 09:51 Consult to Physician [CONS] Routine Comment: Consulting Provider: JERRY NOVOA Physician Instructions: Reason For Exam: CHF Primary care physician: [facility] Hospitalization Reason for admission: SHORTNESS OF BREATH Condition: Stable Hospital course: Patient is a 67-year-old male without any significant past medical history. Patient states at some time he was told he had hypertension but was no longer taking any since for this. Over the past week patient has had a progressive shortness of breath. At this particular time he says it was not associated with coughing. Patient describes shortness of breath more as dyspnea on exertion. Walking to the car. Walking outside when it was hot. States symptoms progressively got worse and he had to come to the emergency room. Upon ER visit patient was found to be in hypoxic respiratory failure. He received oxygen nebulizers and a course of diuretics and in fact he feels much better today. Paste and resting comfortably in bed on 2 L of oxygen. Sats are 97%. Patient denies any time chest pain no orthopnea no PND. Patient denies productive cough denies sick contacts. Patient states he was his normal state of health until a week ago. On admission patient was seen by newspaper reporter with ejection fraction on echocardiography and 45-50%. Little improvement with some Lasix. Cardiology was consulted to establish a relationship. On discussion with them the patient being discharged from above the patient this has been discussed with the patient detail. He verbalized understanding. He's been started on an PAMELA inhibitor and also a beta zach. Cardiology recommended an outpatient stress test - Acute Systolic Congestive heart failure -Elevated d-dimer -Accelerated hypertension - Acute and chronic respiratory failure with hypoxia -COPD - Atrial fibrillation - Malignant hypertension w/o heart disease, - Acute kidney injury predominantly prerenal - Lactic acidosis -Type 2 CO -Gout -Tobacco dependance Disposition: TO HOME OR SELFCARE Time spent for discharge: 35 MINS Core Measure Documentation - Palliative Care Palliative Care/ Comfort Measures: Not Applicable - Core Measures Any of the following diagnoses?: heart failure - VTE Discharge Requirements Deep Vein Thrombosis/Pulmonary Embolism Present on Admission: No - Heart Failure Discharge Requirements PAMELA/ARB for LVSD if EF <40%: Yes Beta zach at discharge: Yes Exam - Physical Exam Narrative exam: VITAL SIGNS: Reviewed. GENERAL: The patient appeared well nourished and normally developed. Vital signs as documented. HEAD: No signs of head trauma. EYES: Pupils are equal. Extraocular motions intact. EARS: Hearing grossly intact. MOUTH: Oropharynx is normal. NECK: No adenopathy, no JVD. CHEST: Chest with clear breath sounds bilaterally. No wheezes, rales, or rhonchi. CARDIAC: Regular rate and rhythm. S1 and S2, without murmurs, gallops, or rubs. VASCULAR: No Edema. Peripheral pulses normal and equal in all extremities. ABDOMEN: Soft, without detectable tenderness. No sign of distention. No rebound or guarding, and no masses palpated. Bowel Sounds normal. MUSCULOSKELETAL: Good range of motion of all major joints. Extremities without clubbing, cyanosis or edema. NEUROLOGIC EXAM: Alert and oriented x 3. No focal sensory or strength deficits. Speech normal. Follows commands. PSYCHIATRIC: Mood normal. SKIN: No rash or lesions. - Constitutional Vitals: Temp Pulse Resp BP Pulse Ox 98.5 F 80 16 176/97 97 12/06/17 01:41 12/06/17 04:25 12/06/17 01:41 12/06/17 01:41 12/06/17 08:12 Plan Activity: advance as tolerated, fall precautions Diet: low fat, low salt Special Instructions: restrict fluid intake to (1200CC/DAY), record daily weights, record daily BP diary Additional Instructions: CHECK RENAL FUNCTION IN 3 DAYS Follow up with: STEVE MONAE MD [Primary Care Provider] - 3-5 Days BRE HSIEH MD [Staff Physician] - 7 Days Prescriptions: Losartan [Cozaar] 50 mg PO QDAY #30 tablet Metoprolol [Lopressor TAB] 50 mg PO BID #60 tablet
--- NOTE | 2017-12-06 11:04 | Consultation ---
History of Present Illness Consult date: 12/06/17 Requesting physician: RIAN OLGUIN Consult reason: congestive heart failure History of present illness: The patient is a 67 year old male with a history of hypertension, gout, tobacco use who presented with complaints of worsening shortness of breath over the past several days. He also reported some intermittent, substernal chest pressure on admission that was non-radiating and has since resolved. BP 178/91 on presentation to the ER. He states that he was diagnosed with hypertension several years ago but has not been taking any medications. BNP 2428. Troponin 0.032. Creatinine 1.3. Echo showed EF 45-50%. Currently he states that he is feeling much better. No further chest pain or shortness of breath. Past History Past Medical History: hypertension, other (gout) Past Surgical History: No surgical history Social history: single, lives with family, smoking, full code. denies: alcohol abuse, prescription drug abuse Family history: hypertension Medications and Allergies Allergies Allergy/AdvReac Type Severity Reaction Status Date / Time No Known Allergies Allergy Verified 12/02/17 12:50 Home Medications Medication Instructions Recorded Confirmed Last Taken Type Losartan [Cozaar] 50 mg PO QDAY #30 tablet 12/06/17 Unknown Rx Metoprolol [Lopressor TAB] 50 mg PO BID #60 tablet 12/06/17 Unknown Rx Active Meds: Active Medications Acetaminophen (Tylenol) 650 mg PO Q4H PRN PRN Reason: Pain MILD(1-3)/Fever >100.5/CISNEROS Famotidine (Pepcid) 10 mg PO BID [facility] Last Admin: 12/05/17 21:48 Dose: 10 mg Hydralazine HCl (Apresoline) 10 mg IV Q4H PRN PRN Reason: Hypertension Last Admin: 12/06/17 02:27 Dose: 10 mg Losartan Potassium (Cozaar) 50 mg PO QDAY [facility] Last Admin: 12/05/17 12:27 Dose: 50 mg Metoprolol Tartrate (Lopressor) 50 mg PO BID [facility] Last Admin: 12/05/17 21:48 Dose: 50 mg Ondansetron HCl (Zofran) 4 mg IV Q8H PRN PRN Reason: Nausea And Vomiting Oxycodone/Acetaminophen (Percocet 5/325) 1 tab PO Q6H PRN PRN Reason: Pain, Moderate (4-6) Last Admin: 12/06/17 02:32 Dose: 1 tab Sodium Chloride (Sodium Chloride Flush Syringe 10 Ml) 10 ml IV BID [facility] Last Admin: 12/05/17 21:47 Dose: 10 ml Sodium Chloride (Sodium Chloride Flush Syringe 10 Ml) 10 ml IV PRN PRN PRN Reason: LINE FLUSH Last Admin: 12/05/17 01:01 Dose: 10 ml Review of Systems Constitutional: no fever, no chills Ears, nose, mouth and throat: no nasal congestion, no nasal discharge, no sinus pressure Cardiovascular: chest pain, shortness of breath, dyspnea on exertion Respiratory: no cough, no congestion, no wheezing Gastrointestinal: no abdominal pain, no nausea, no vomiting, no diarrhea Genitourinary Male: no dysuria, no hematuria Musculoskeletal: no neck stiffness, no neck pain, no myalgias Integumentary: no rash, no pruritis Neurological: no parathesias, no numbness, no tingling Endocrine: no cold intolerance, no heat intolerance Hematologic/Lymphatic: no easy bruising, no easy bleeding Allergic/Immunologic: no urticaria, no wheezing Physical Examination Last Vital Signs Temp 98.5 F 12/06/17 01:41 Pulse 80 12/06/17 04:25 Resp 16 12/06/17 01:41 BP 176/97 12/06/17 01:41 Pulse Ox 97 12/06/17 08:12 General appearance: no acute distress HEENT: Positive: PERRL, Normocephaly, Mucus Membranes Moist Neck: Positive: neck supple, trachea midline Cardiac: Positive: Reg Rate and Rhythm, S1/S2 Lungs: Positive: clear to auscultation Neuro: Positive: Grossly Intact Abdomen: Positive: Soft, Active Bowel Sounds Skin: Positive: Clear. Negative: Rash Extremities: Present: normal. Absent: edema Results 12/05/17 04:59 12/05/17 04:59 - Imaging and Cardiology Echo: report reviewed (11/2017: mild LVH, EF 45-50%, mild MR) EKG: image reviewed EKG interpretations - Telemetry EKG Rhythm: Sinus Rhythm - EKG Sinus rhythms and dysrhythmias: sinus rhythm Chamber hypertrophy or enlargement: left ventricular hypertro Repolarization changes or abnormalities: repolarization abn secondary to ventricular hypertrophy Assessment and Plan Assessment/Plan: Acute HFpEF (EF 45-50%) Clinically improving Continue metoprolol 50mg BID Increase losartan to 100mg daily Accelerated hypertension Continue metoprolol 50mg BID Increase losartan to 100mg daily Add norvasc 5mg PO daily Elevated troponin Likely due to accelerated HTN Chest pain resolved Will do Lexiscan stress test as an outpatient Atypical chest pain-->resolved Hyperlipidemia New diagnosis Add atorvastatin 40mg daily ?CKD Gout Tobacco abuse Counseled on cessation Will optimize anti-hypertensive regimen. Patient may be discharged from a cardiac standpoint if BP controlled. Will do Lexiscan stress test as an outpatient. Follow up appointment with Dr. Dumont in the [place] office on 12/27/17 at 10: 15 am. The patient has been seen in conjunction with Dr. Dumont who agrees with the assessment and plan of care.
[2017-12-06 11:34] VITALS: BP 143/71
[2017-12-06] MEDS ORDERED: COZAAR PO SCH (12:00)
[2017-12-06] MEDS ORDERED: NORVASC PO SCH (12:00)
== END 2017-12-06 20:00 | disposition home or self-care (01) | DRG 280 ==
LOC: ED 06:20 → 4A 10:31 → 2B-ACE 12-05 00:44
PROVIDERS: ADMIT Internal Medicine; ATTEND Internal Medicine
PROC: 3E0234Z Introduction of Serum, Toxoid and Vaccine into Muscle, Percutaneous Approach (ICD-10-PCS; principal; 2017-12-05)
DX: I21.A1 Myocardial infarction type 2 (principal); J96.21 Acute and chronic respiratory failure with hypoxia; I50.41 Acute combined systolic (congestive) and diastolic (congestive) heart failure; I13.0 Hypertensive heart and chronic kidney disease with heart failure and stage 1 through stage 4 chronic kidney disease, or unspecified chronic kidney disease; J44.1 Chronic obstructive pulmonary disease with (acute) exacerbation; N17.9 Acute kidney failure, unspecified; E87.2 Acidosis; F17.200 Nicotine dependence, unspecified, uncomplicated; N18.9 Chronic kidney disease, unspecified; I48.91 Unspecified atrial fibrillation; M10.9 Gout, unspecified; E78.5 Hyperlipidemia, unspecified; R07.89 Other chest pain; Z71.6 Tobacco abuse counseling; Z82.49 Family history of ischemic heart disease and other diseases of the circulatory system; Z23 Encounter for immunization
CPT/HCPCS: 36415; 71045; 71275; 80048; 80053; 80061; 82140; 82550; 82553; 83880; 84484; 85025; 85379; 85610; 85730; 90732; 93005; 93010; 93306; 94640; 94760; 96372; 96374; 96375; 99406; J0360; J0456; J1650; J1940; J2210; J2920; J2930; J7030; J7050; Q9967

== ENCOUNTER 2021-04-02 10:56 | Inpatient (IN) | payer MEDICARE ==
--- NOTE | 2021-04-02 11:19 | Emergency Department Report ---
ED Shortness of Breath HPI - General Stated Complaint: SWOLLEN ALL OVER BODY Time Seen by Provider: 04/02/21 11:06 - History of Present Illness Initial Comments: Mr. Carter is a 70 years old male with history of congestive heart failure, hypertension and chronic kidney disease. Patient presented to the ER complaining of generalized body swelling and shortness of breath from approximately 1 week. Patient denied any chest pain, fever, chills or cough. Patient stated that he is taking a water pill but he does not remember the name of it. MD Complaint: shortness of breath -: days(s) Severity: moderate Known History Of: congestive heart failure - Related Data Home Medications Medication Instructions Recorded Confirmed Last Taken Atorvastatin [Lipitor] 40 mg PO QHS 04/03/21 04/03/21 Unknown ISOSORBIDE MONOnitrate [Imdur ER] 30 mg PO DAILY 04/03/21 04/03/21 Unknown carvediloL [Coreg] 25 mg PO BID 04/03/21 04/03/21 Unknown Previous Rx's Medication Instructions Recorded Last Taken Type Furosemide [Lasix] 20 mg PO QDAY 30 Days #30 tablet 04/05/21 Unknown Rx hydrALAZINE [Apresoline TAB] 50 mg PO BID 30 Days #60 tablet 04/05/21 Unknown Rx Allergies Allergy/AdvReac Type Severity Reaction Status Date / Time No Known Allergies Allergy Verified 12/02/17 12:50 ED Review of Systems ROS: Stated complaint: SWOLLEN ALL OVER BODY Other details as noted in HPI Comment: All other systems reviewed and negative Constitutional: denies: chills, fever Respiratory: shortness of breath, SOB with exertion, SOB at rest. denies: cough, wheezing Cardiovascular: denies: chest pain, palpitations, dyspnea on exertion Gastrointestinal: denies: abdominal pain, nausea, vomiting Genitourinary: denies: urgency, dysuria, frequency Musculoskeletal: denies: back pain Neurological: weakness. denies: headache, numbness, paresthesias, confusion, abnormal gait Psychiatric: denies: depression ED Past Medical Hx - Past Medical History Hx Hypertension: Yes Hx Congestive Heart Failure: Yes Hx Diabetes: No Hx Renal Disease: No Hx Asthma: No Hx COPD: Yes Hx HIV: No Additional medical history: gout - Social History Smoking Status: Current Every Day Smoker - Medications Home Medications: Home Medications Medication Instructions Recorded Confirmed Last Taken Type Atorvastatin [Lipitor] 40 mg PO QHS 04/03/21 04/03/21 Unknown History ISOSORBIDE MONOnitrate [Imdur ER] 30 mg PO DAILY 04/03/21 04/03/21 Unknown History carvediloL [Coreg] 25 mg PO BID 04/03/21 04/03/21 Unknown History Furosemide [Lasix] 20 mg PO QDAY 30 Days #30 tablet 04/05/21 Unknown Rx hydrALAZINE [Apresoline TAB] 50 mg PO BID 30 Days #60 tablet 04/05/21 Unknown Rx ED Physical Exam - General General appearance: alert, in no apparent distress - Head Head exam: Present: atraumatic, normocephalic, normal inspection - Eye Eye exam: Present: normal appearance, PERRL - ENT ENT exam: Present: normal exam, normal orophraynx, mucous membranes moist - Neck Neck exam: Present: normal inspection, full ROM. Absent: tenderness, meningismus - Respiratory Respiratory exam: Present: rales, rhonchi, decreased breath sounds. Absent: respiratory distress, chest wall tenderness, accessory muscle use, prolonged expiratory - Cardiovascular Cardiovascular Exam: Present: regular rate, normal rhythm, normal heart sounds - GI/Abdominal GI/Abdominal exam: Present: soft, normal bowel sounds. Absent: distended, tenderness, guarding, rebound, rigid, organomegaly, mass, bruit, pulsatile mass, hernia - Extremities Exam Extremities exam: Present: normal inspection, full ROM, normal capillary refill, pedal edema. Absent: calf tenderness - Back Exam Back exam: Present: normal inspection, full ROM. Absent: CVA tenderness (R), CVA tenderness (L) - Neurological Exam Neurological exam: Present: alert, oriented X3, CN II-XII intact - Psychiatric Psychiatric exam: Present: normal mood - Skin Skin exam: Present: warm, intact, normal color ED Course Vital Signs 04/02/21 04/02/21 04/02/21 11:02 11:30 12:00 Temperature 97.9 F Pulse Rate 74 Respiratory 22 20 Rate Blood Pressure 188/91 181/94 Blood Pressure [Right] O2 Sat by Pulse 96 95 96 Oximetry 04/02/21 04/02/21 04/02/21 13:00 14:00 15:00 Temperature Pulse Rate 76 75 79 Respiratory 16 28 H 32 H Rate Blood Pressure 180/105 175/89 175/91 Blood Pressure [Right] O2 Sat by Pulse 97 94 93 Oximetry 04/02/21 04/02/21 04/02/21 16:00 17:00 18:00 Temperature Pulse Rate 75 77 79 Respiratory 19 19 16 Rate Blood Pressure 184/89 178/92 183/89 Blood Pressure [Right] O2 Sat by Pulse 91 96 96 Oximetry 04/02/21 04/02/21 04/02/21 18:30 19:19 20:30 Temperature 99.1 F Pulse Rate 77 79 81 Respiratory 19 20 12 Rate Blood Pressure 183/89 180/84 Blood Pressure 188/89 [Right] O2 Sat by Pulse 94 95 94 Oximetry 04/02/21 04/02/21 04/02/21 20:45 21:00 22:00 Temperature 98.7 F Pulse Rate 78 78 Respiratory 18 16 Rate Blood Pressure 179/86 177/87 Blood Pressure [Right] O2 Sat by Pulse 95 97 93 Oximetry 04/02/21 04/02/21 04/02/21 22:30 23:48 23:50 Temperature Pulse Rate 78 78 77 Respiratory 17 17 20 Rate Blood Pressure 164/90 177/82 177/82 Blood Pressure [Right] O2 Sat by Pulse 98 94 96 Oximetry 04/03/21 04/03/21 04/03/21 00:00 00:10 00:14 Temperature Pulse Rate 79 82 81 Respiratory 17 21 18 Rate Blood Pressure 177/82 177/82 Blood Pressure 177/82 [Right] O2 Sat by Pulse 96 97 97 Oximetry 04/03/21 04/03/21 04/03/21 00:20 00:30 00:40 Temperature Pulse Rate 79 78 79 Respiratory 16 16 19 Rate Blood Pressure 178/90 178/90 178/90 Blood Pressure [Right] O2 Sat by Pulse 98 99 96 Oximetry ED Medical Decision Making - Lab Data Result diagrams: 04/04/21 04:35 04/04/21 04:35 - EKG Data -: EKG Interpreted by Ri EKG shows normal: sinus rhythm Rate: normal - EKG Data Interpretation: no acute changes - Radiology Data Radiology results: report reviewed - Medical Decision Making Mr. Carter is a 70 years old male with history of congestive heart failure, hypertension and chronic kidney disease. Patient presented to the ER complaining of generalized body swelling and shortness of breath from approximately 1 week. Patient denied any chest pain, fever, chills or cough. Patient stated that he is taking a water pill but he does not remember the name of it. EKG is unremarkable. Labs reviewed and showed a significantly elevated BNP of more than 12,000. Chest x-ray showed pulmonary edema. Patient received Lasix 40 mg IV initially with no much improvement. Patient received another 20 mg of IV Lasix. I discussed the patient with Dr. Suresh, he agreed to admit the patient to medical service for further management. Critical care attestation.: If time is entered above; I have spent that time in minutes in the direct care of this critically ill patient, excluding procedure time. ED Disposition Clinical Impression: Shortness of breath, Acute on chronic HFrEF (heart failure with reduced ejection fraction) Disposition: ADMITTED INPATIENT Is pt being admited?: Yes Condition: Stable
--- NOTE | 2021-04-02 11:36 | XRay Report ---
CHEST 2 VIEWS INDICATION / CLINICAL INFORMATION: SOB, anasarca. COMPARISON: 02/17/2020 FINDINGS: SUPPORT DEVICES: None. HEART / MEDIASTINUM: Unchanged LUNGS / PLEURA: There is mild increase in interstitial markings in the bases likely representing davi a. There is a small amount of right pleural fluid. No pneumothorax is seen. There is mild venous pat estion. ADDITIONAL FINDINGS: No significant additional findings. IMPRESSION: 1. There is mild edema. There is a small right pleural effusion. Signer Name: Hernesto Barrios MD Signed: 04/02/2021 11:32 AM Workstation Name: [id number]
[2021-04-02 12:34] LABS: Basophils % (Auto) 0.5 % (0.0-1.8); Eosinophils # (Auto) 0.2 K/mm3 (0.0-0.4); Hematocrit 39.2 % (35.5-45.6); Hemoglobin 12.4 gm/dl (11.8-15.2); Lymphocytes # (Auto) 0.9 K/mm3 (1.2-5.4); Lymphocytes % (Auto) 16.5 % (13.4-35.0); Mean Corpuscular HGB Conc 32 % (32-34); Mean Corpuscular Volume 98 fl (84-94); Monocytes # (Auto) 0.7 K/mm3 (0.0-0.8); Platelet Count 151 K/mm3 (140-440); Red Blood Count 3.99 M/mm3 (3.65-5.03); Red Cell Distribution Width 16.7 % (13.2-15.2)
[2021-04-02] MEDS ORDERED: FUROSEMIDE 40 MG/4 ML INJ IV ONE ×2 (12:42→13:15)
[2021-04-02 12:43] LABS: INR 1.27 (0.87-1.13)
[2021-04-02 12:44] LABS: Partial Thromboplastin Time 58.8 Sec. (24.2-36.6)
[2021-04-02 12:49] LABS: BUN/Creatinine Ratio 9; Blood Urea Nitrogen 12 mg/dL (9-20); Calcium 9.1 mg/dL (8.4-10.2); Hemolysis Index 0
--- NOTE | 2021-04-03 00:25 | History and Physical Report ---
History of Present Illness Date of examination: 04/02/21 Date of admission: 04/02/21 13:25 Chief complaint: Shortness of breath and generalized swelling for 1 week History of present illness: 70-year-old male with history of congestive heart failure hypertension and coronary artery disease and hyperlipidemia presents with increasing shortness of breath of 1 week duration. No chest pain. Patient has orthopnea. Patient has swelling of both the lower extremities. Patient has class IV NYHA symptoms. Patient was treated for EYSSENIA in the past and his creatinine went up to 3 and today it is 1.4. No chronic kidney disease. - Past Medical History --Hypertension: Yes --Congestive Heart Failure: Yes --COPD: Yes --Additional medical history: gout - Social History Smoking Status: Current Every Day Smoker -Family history --Htn - Medications Home Medications: Home Medications Medication Instructions Recorded Confirmed Last Taken Type Aspirin [Aspirin BABY CHEW TAB] 81 mg PO QDAY #30 tab.chew 02/23/20 05/30/20 Unknown Rx AtorvaSTATin [Lipitor] 40 mg PO QHS #30 tablet 02/23/20 05/30/20 Unknown Rx Folic Acid [Folvite] 1 mg PO QDAY #30 tablet 02/23/20 05/30/20 Unknown Rx ISOSORBIDE MONOnitrate [Imdur ER] 30 mg PO QDAY #30 tablet 02/23/20 05/30/20 Unknown Rx Multivitamin Tab [Multiple Vitamin 1 each PO QDAY #30 tablet 02/23/20 05/30/20 Unknown Rx TAB (Theragran)] Thiamine [Vitamin B-1] 100 mg PO QDAY #30 tablet 02/23/20 05/30/20 Unknown Rx carvediloL [Coreg] 6.25 mg PO BID #60 tablet 02/23/20 05/30/20 Unknown Rx Review of Systems ROS: Stated complaint: SWOLLEN ALL OVER BODY Other details as noted in HPI Comment: All other systems reviewed and negative Constitutional: denies: chills, fever Respiratory: shortness of breath, SOB with exertion, SOB at rest. denies: cough, wheezing Cardiovascular: denies: chest pain, palpitations, dyspnea on exertion Gastrointestinal: denies: abdominal pain, nausea, vomiting Genitourinary: denies: urgency, dysuria, frequency Musculoskeletal: denies: back pain Neurological: weakness. denies: headache, numbness, paresthesias, confusion, abnormal gait Psychiatric: denies: depression Medications and Allergies Allergies Allergy/AdvReac Type Severity Reaction Status Date / Time No Known Allergies Allergy Verified 12/02/17 12:50 Home Medications Medication Instructions Recorded Confirmed Last Taken Type Aspirin [Aspirin BABY CHEW TAB] 81 mg PO QDAY #30 tab.chew 02/23/20 05/30/20 Unknown Rx AtorvaSTATin [Lipitor] 40 mg PO QHS #30 tablet 02/23/20 05/30/20 Unknown Rx Folic Acid [Folvite] 1 mg PO QDAY #30 tablet 02/23/20 05/30/20 Unknown Rx ISOSORBIDE MONOnitrate [Imdur ER] 30 mg PO QDAY #30 tablet 02/23/20 05/30/20 Unknown Rx Multivitamin Tab [Multiple Vitamin 1 each PO QDAY #30 tablet 02/23/20 05/30/20 Unknown Rx TAB (Theragran)] Thiamine [Vitamin B-1] 100 mg PO QDAY #30 tablet 02/23/20 05/30/20 Unknown Rx carvediloL [Coreg] 6.25 mg PO BID #60 tablet 02/23/20 05/30/20 Unknown Rx Exam - Constitutional Vitals: Temp Pulse Resp BP Pulse Ox 98.7 F 81 18 177/82 97 04/02/21 22:00 04/03/21 00:14 04/03/21 00:14 04/03/21 00:14 04/03/21 00:14 General appearance: Present: mild distress, well-nourished - EENT Eyes: Present: PERRL ENT: hearing intact, clear oral mucosa - Neck Neck: Present: supple, normal ROM - Respiratory Respiratory effort: normal Respiratory: bilateral: CTA - Cardiovascular Heart rate: 78 Rhythm: regular Heart Sounds: Present: S1 & S2. Absent: rub, click - Extremities Extremities: pulses symmetrical, No edema Peripheral Pulses: within normal limits - Abdominal General gastrointestinal: Present: soft, non-tender, non-distended, normal bowel sounds Male genitourinary: Present: normal - Integumentary Integumentary: Present: clear, warm, dry - Musculoskeletal Musculoskeletal: gait normal, strength equal bilaterally - Psychiatric Psychiatric: appropriate mood/affect, intact judgment & insight - Neurologic Neurologic: CNII-XII intact, moves all extremities - Allied Health Allied health notes reviewed: nursing, case management HEART Score - HEART Score History: Highly suspicious Age: > 65 Risk factors: > 3 risk factors or hx of atherosclerotic disease Troponin: Troponin T 0.018 ng/mL (0.00-0.029) 04/02/21 15:37 Troponin: 1-3x normal limit - Critical Actions Critical Actions: 4-6 pts:12-16.6% risk of adverse cardiac event. Should be admitted Results - Labs CBC & Chem 7: 04/02/21 12:04 04/02/21 12:04 Labs: Laboratory Last Values WBC 5.8 K/mm3 (4.5-11.0) 04/02/21 12:04 RBC 3.99 M/mm3 (3.65-5.03) 04/02/21 12:04 Hgb 12.4 gm/dl (11.8-15.2) 04/02/21 12:04 Hct 39.2 % (35.5-45.6) 04/02/21 12:04 MCV 98 fl (84-94) H 04/02/21 12:04 MCH 31 pg (28-32) 04/02/21 12:04 MCHC 32 % (32-34) 04/02/21 12:04 RDW 16.7 % (13.2-15.2) H 04/02/21 12:04 Plt Count 151 K/mm3 (140-440) 04/02/21 12:04 Lymph % (Auto) 16.5 % (13.4-35.0) 04/02/21 12:04 [place] % (Auto) 12.0 % (0.0-7.3) H 04/02/21 12:04 Eos % (Auto) 3.0 % (0.0-4.3) 04/02/21 12:04 Baso % (Auto) 0.5 % (0.0-1.8) 04/02/21 12:04 Lymph # (Auto) 0.9 K/mm3 (1.2-5.4) L 04/02/21 12:04 [place] # (Auto) 0.7 K/mm3 (0.0-0.8) 04/02/21 12:04 Eos # (Auto) 0.2 K/mm3 (0.0-0.4) 04/02/21 12:04 Baso # (Auto) 0.0 K/mm3 (0.0-0.1) 04/02/21 12:04 Seg Neutrophils % 68.0 % (40.0-70.0) 04/02/21 12:04 Seg Neutrophils # 3.9 K/mm3 (1.8-7.7) 04/02/21 12:04 PT 17.2 Sec. (12.2-14.9) H 04/02/21 12:04 INR 1.27 (0.87-1.13) H 04/02/21 12:04 APTT 58.8 Sec. (24.2-36.6) H 04/02/21 12:04 Sodium 142 mmol/L (137-145) 04/02/21 12:04 Potassium 3.9 mmol/L (3.6-5.0) 04/02/21 12:04 Chloride 106.7 mmol/L (98-107) 04/02/21 12:04 Carbon Dioxide 24 mmol/L (22-30) 04/02/21 12:04 Anion Gap 15 mmol/L 04/02/21 12:04 BUN 12 mg/dL (9-20) 04/02/21 12:04 Creatinine 1.4 mg/dL (0.8-1.3) H 04/02/21 12:04 Estimated GFR > 60 ml/min 04/02/21 12:04 BUN/Creatinine Ratio 9 % 04/02/21 12:04 Glucose 79 mg/dL (75-100) 04/02/21 12:04 Lactic Acid 1.20 mmol/L (0.7-2.0) 04/02/21 12:04 Calcium 9.1 mg/dL (8.4-10.2) 04/02/21 12:04 Troponin T 0.018 ng/mL (0.00-0.029) 04/02/21 15:37 NT-Pro-B Natriuret Pep 95360 pg/mL (0-900) H 04/02/21 12:04 Short CBC 04/02/21 Range/Units 12:04 WBC 5.8 (4.5-11.0) K/mm3 Hgb 12.4 (11.8-15.2) gm/dl Hct 39.2 (35.5-45.6) % Plt Count 151 (140-440) K/mm3 BMP 04/02/21 12:04 Sodium 142 Potassium 3.9 Chloride 106.7 Carbon Dioxide 24 BUN 12 Creatinine 1.4 H Glucose 79 Calcium 9.1 Cardiac Enzymes 04/02/21 04/02/21 Range/Units 12:04 15:37 Troponin T 0.021 0.018 (0.00-0.029) ng/mL Microbiology: Microbiology 04/02/21 12:04 Peripheral/Venous Blood Culture - Preliminary Culture in Progress 04/02/21 12:04 Peripheral/Venous Blood Culture - Preliminary Culture in Progress Assessment and Plan Advance Directives: Yes (Full code) VTE prophylaxis?: Chemical Plan of care discussed with patient/family: Yes - Patient Problems (1) Acute exacerbation of CHF (congestive heart failure) Current Visit: Yes Status: Acute Qualifiers: Heart failure type: combined systolic and diastolic Qualified Code(s): I50.43 - Acute on chronic combined systolic (congestive) and diastolic (congestive) heart failure Plan to address problem: Daily weights Daily intake and output Echocardiogram for ejection fraction IV Lasix 40 mg every 12 (2) Hypertension Current Visit: Yes Status: Chronic Qualifiers: Hypertension type: primary hypertension Qualified Code(s): I10 - Essential (primary) hypertension Plan to address problem: Continue home antihypertensives and adjust medications as necessary (3) Hyperlipidemia Current Visit: Yes Status: Chronic Qualifiers: Hyperlipidemia type: mixed hyperlipidemia Qualified Code(s): E78.2 - Mixed hyperlipidemia Plan to address problem: Continue statins (4) Coronary artery disease Current Visit: Yes Status: Chronic Plan to address problem: Continue isosorbide and aspirin (5) DVT prophylaxis Current Visit: No Status: Acute Plan to address problem: Patient on anticoagulation and GI prophylaxis
[2021-04-03] MEDS ORDERED: ONDANSETRON 4 MG/2 ML INJ IV PRN (00:29)
[2021-04-03] MEDS ORDERED: METOCLOPRAMIDE 10 MG/2 ML INJ IV PRN (00:29)
[2021-04-03] MEDS ORDERED: HYDROmorphone 1 MG/1 ML INJ IV PRN (00:29)
[2021-04-03] MEDS ORDERED: ACETAMINOPHEN 325 MG TAB PO PRN (00:29)
[2021-04-03] MEDS ORDERED: oxyCODONE /ACETAMINOPHEN 5-325MG TAB PO PRN (00:29)
[2021-04-03] MEDS ORDERED: FUROSEMIDE 40 MG/4 ML INJ IV ONE (00:42)
[2021-04-03] MEDS: POTASSIUM CHLORIDE ER 20 MEQ TAB PO SCH ×3 (01:35→21:59)
[2021-04-03] MEDS: carvediloL 6.25 MG TAB PO SCH ×2 (01:35→09:37)
[2021-04-03] MEDS: HEPARIN 5,000 UNIT/1 ML VIAL SUB-Q SCH ×3 (01:36→21:59)
[2021-04-03] MEDS: FUROSEMIDE 40 MG/4 ML INJ IV SCH ×2 (07:20→17:50)
--- NOTE | 2021-04-03 09:05 | Consultation ---
History of Present Illness Consult date: 04/03/21 Requesting physician: MARLYS AGUILAR Consult reason: congestive heart failure History of present illness: Primary Bar Host: Dc Davenport Pt is a 70-year-old AA male with a hx of chronic HFrEF // ICMP (EF improved to 40-45% on echo 05/2020), CAD, CKD, HTN, HLD, and tobacco & EtOH abuse, who presented with complaints of progressively worsening BLE edema x 1 week. Pt also reports mild SOB and PND. Not orthopneic upon assessment. In addition, pt reports decreased exercise tolerance. He walks with a cane and states that prior to this past week he could walk 10-15 min without dyspnea; however, he can now only make it from the bed to the door of his hospital room. BNP noted to be > 12k upon arrival. CXR reveals evidence of mild pulmonary edema and a small right pleural effusion. Pt reports he has been compliant with his home cardiac regimen, as well as fluid/salt restrictions. Of note however, BP significantly elevated upon arrival, with SBP in the 180s. Echo 05/2020 - EF 40-45%, grade II diastolic dysfxn. Echo 02/2020 - EF 20-25%, LV mildly dilated, elevated mean LA pressure, elevated LVEDP, RVSP 50-55mmHg. C 02/2020 - multivessel CAD w/left main patent, LAD mid 80%, diagonal 1 ostial 95% (small to medium caliber vessel), Cfx prox 70%, OM1 patent with mild luminal irregularities, OM2 100% with left to left collaterals, RCA is large dominant vessel with diffuse disease 20-30% with 100% distally, severe LV dysfunction. Past History Past Medical History: heart failure, hypertension, hyperlipidemia, renal failure Past Surgical History: denies: CABG, PTCA Social history: lives with family, smoking (3 cigarettes/day x 10-12 years), alcohol abuse (occasional beer) Family history: no significant family history Medications and Allergies Allergies Allergy/AdvReac Type Severity Reaction Status Date / Time No Known Allergies Allergy Verified 12/02/17 12:50 Home Medications Medication Instructions Recorded Confirmed Last Taken Type Aspirin [Aspirin BABY CHEW TAB] 81 mg PO QDAY #30 tab.chew 02/23/20 05/30/20 Unknown Rx AtorvaSTATin [Lipitor] 40 mg PO QHS #30 tablet 02/23/20 05/30/20 Unknown Rx Folic Acid [Folvite] 1 mg PO QDAY #30 tablet 02/23/20 05/30/20 Unknown Rx ISOSORBIDE MONOnitrate [Imdur ER] 30 mg PO QDAY #30 tablet 02/23/20 05/30/20 Unknown Rx Multivitamin Tab [Multiple Vitamin 1 each PO QDAY #30 tablet 02/23/20 05/30/20 Unknown Rx TAB (Theragran)] Thiamine [Vitamin B-1] 100 mg PO QDAY #30 tablet 02/23/20 05/30/20 Unknown Rx carvediloL [Coreg] 6.25 mg PO BID #60 tablet 02/23/20 05/30/20 Unknown Rx Active Meds: Active Medications Acetaminophen (Acetaminophen 325 Mg Tab) 650 mg PO Q4H PRN PRN Reason: Pain MILD(1-3)/Fever >100.5/CISNEROS Aspirin (Aspirin 81 Mg Tab Chew) 81 mg PO QDAY [facility] Atorvastatin Calcium (Atorvastatin 40 Mg Tab) 40 mg PO QHS [facility] Carvedilol (Carvedilol 6.25 Mg Tab) 6.25 mg PO BID [facility] Last Admin: 04/03/21 01:35 Dose: 6.25 mg Documented by: Famotidine (Famotidine 20 Mg/2 Ml Inj) 20 mg IV BID [facility] Folic Acid (Folic Acid 1 Mg Tab) 1 mg PO QDAY [facility] Furosemide (Furosemide 40 Mg/4 Ml Inj) 40 mg IV 0600,1800 [facility] Last Admin: 04/03/21 07:20 Dose: 40 mg Documented by: Heparin Sodium (Porcine) (Heparin 5,000 Unit/1 Ml Vial) 5,000 unit SUB-Q Q12HR [facility] Last Admin: 04/03/21 01:36 Dose: 5,000 unit Documented by: Hydromorphone HCl (Hydromorphone 1 Mg/1 Ml Inj) 0.5 mg IV Q3H PRN PRN Reason: Pain , Severe (7-10) Isosorbide Mononitrate (Isosorbide Mononitrate Er 30 Mg Tab) 30 mg PO QDAY [facility] Metoclopramide HCl (Metoclopramide 10 Mg/2 Ml Inj) 10 mg IV Q6H PRN PRN Reason: Nausea And Vomiting Multivitamins (Multivitamins ,Therapeutic Tab) 1 each PO QDAY [facility] Ondansetron HCl (Ondansetron 4 Mg/2 Ml Inj) 4 mg IV Q8H PRN PRN Reason: Nausea And Vomiting Oxycodone/Acetaminophen (Oxycodone /Acetaminophen 5-325mg Tab) 1 tab PO Q6H PRN PRN Reason: Pain, Moderate (4-6) Potassium Chloride (Potassium Chloride Er 20 Meq Tab) 20 meq PO BID [facility] Last Admin: 04/03/21 01:35 Dose: 20 meq Documented by: Sodium Chloride (Sodium Chloride 0.9% 10 Ml Flush Syringe) 10 ml IV BID [facility] Last Admin: 04/03/21 01:36 Dose: 10 ml Documented by: Sodium Chloride (Sodium Chloride 0.9% 10 Ml Flush Syringe) 10 ml IV PRN PRN PRN Reason: LINE FLUSH Thiamine HCl (Thiamine 100 Mg Tab) 100 mg PO QDAY [facility] Review of Systems Constitutional: no fever, no chills Ears, nose, mouth and throat: no nasal congestion, no sore throat Cardiovascular: edema, shortness of breath, dyspnea on exertion, paroxysmal nocturnal dyspnea, no chest pain, no orthopnea, no palpitations, no syncope, no lightheadedness, no claudication Respiratory: cough, shortness of breath, dyspnea on exertion, no cough with sputum Gastrointestinal: no abdominal pain, no nausea, no vomiting Genitourinary Male: no dysuria Musculoskeletal: no myalgias Integumentary: no rash, no wounds Neurological: no weakness, no numbness, no tingling, no seizures, no syncope, no vertigo, no headaches Endocrine: no cold intolerance, no heat intolerance, no polydipsia, no polyuria Hematologic/Lymphatic: no easy bruising, no easy bleeding Allergic/Immunologic: no anaphylaxis Physical Examination Last Vital Signs Temp 98.6 F 04/03/21 03:42 Pulse 72 04/03/21 04:31 Resp 18 04/03/21 03:42 BP 147/69 04/03/21 03:42 Pulse Ox 96 04/03/21 08:42 General appearance: no acute distress HEENT: Positive: EOMI, Normocephaly, Mucus Membranes Moist Neck: Positive: neck supple, trachea midline. Negative: JVD/HJR Cardiac: Positive: Reg Rate and Rhythm, S1/S2 Lungs: Positive: Decreased Breath Sounds (bases) Neuro: Positive: Grossly Intact Abdomen: Positive: Soft. Negative: Tender Skin: Positive: Other (chronic changes). Negative: Rash Extremities: Present: upper extr. pulses, lower extr. pulses, +2 Edema (BLE), warm Results 04/02/21 12:04 04/02/21 12:04 Cardiac Enzymes 04/02/21 04/02/21 04/02/21 Range/Units 12:04 12:04 12:04 WBC 5.8 (4.5-11.0) K/mm3 RBC 3.99 (3.65-5.03) M/mm3 Hgb 12.4 (11.8-15.2) gm/dl Hct 39.2 (35.5-45.6) % MCV 98 H (84-94) fl MCH 31 (28-32) pg MCHC 32 (32-34) % RDW 16.7 H (13.2-15.2) % Plt Count 151 (140-440) K/mm3 Lymph % (Auto) 16.5 (13.4-35.0) % [place] % (Auto) 12.0 H (0.0-7.3) % Eos % (Auto) 3.0 (0.0-4.3) % Baso % (Auto) 0.5 (0.0-1.8) % Lymph # (Auto) 0.9 L (1.2-5.4) K/mm3 [place] # (Auto) 0.7 (0.0-0.8) K/mm3 Eos # (Auto) 0.2 (0.0-0.4) K/mm3 Baso # (Auto) 0.0 (0.0-0.1) K/mm3 Seg Neutrophils % 68.0 (40.0-70.0) % Seg Neutrophils # 3.9 (1.8-7.7) K/mm3 PT (12.2-14.9) Sec. INR (0.87-1.13) APTT (24.2-36.6) Sec. Sodium 142 (137-145) mmol/L Potassium 3.9 (3.6-5.0) mmol/L Chloride 106.7 (98-107) mmol/L Carbon Dioxide 24 (22-30) mmol/L Anion Gap 15 mmol/L BUN 12 (9-20) mg/dL Creatinine 1.4 H (0.8-1.3) mg/dL Estimated GFR > 60 ml/min BUN/Creatinine Ratio 9 % Glucose 79 (75-100) mg/dL Lactic Acid 1.20 (0.7-2.0) mmol/L Calcium 9.1 (8.4-10.2) mg/dL Troponin T (0.00-0.029) ng/mL NT-Pro-B Natriuret Pep (0-900) pg/mL 04/02/21 04/02/21 04/02/21 Range/Units 12:04 12:04 12:04 WBC (4.5-11.0) K/mm3 RBC (3.65-5.03) M/mm3 Hgb (11.8-15.2) gm/dl Hct (35.5-45.6) % MCV (84-94) fl MCH (28-32) pg MCHC (32-34) % RDW (13.2-15.2) % Plt Count (140-440) K/mm3 Lymph % (Auto) (13.4-35.0) % [place] % (Auto) (0.0-7.3) % Eos % (Auto) (0.0-4.3) % Baso % (Auto) (0.0-1.8) % Lymph # (Auto) (1.2-5.4) K/mm3 [place] # (Auto) (0.0-0.8) K/mm3 Eos # (Auto) (0.0-0.4) K/mm3 Baso # (Auto) (0.0-0.1) K/mm3 Seg Neutrophils % (40.0-70.0) % Seg Neutrophils # (1.8-7.7) K/mm3 PT 17.2 H (12.2-14.9) Sec. INR 1.27 H (0.87-1.13) APTT 58.8 H (24.2-36.6) Sec. Sodium (137-145) mmol/L Potassium (3.6-5.0) mmol/L Chloride (98-107) mmol/L Carbon Dioxide (22-30) mmol/L Anion Gap mmol/L BUN (9-20) mg/dL Creatinine (0.8-1.3) mg/dL Estimated GFR ml/min BUN/Creatinine Ratio % Glucose (75-100) mg/dL Lactic Acid (0.7-2.0) mmol/L Calcium (8.4-10.2) mg/dL Troponin T 0.021 (0.00-0.029) ng/mL NT-Pro-B Natriuret Pep 28168 H (0-900) pg/mL 04/02/21 Range/Units 15:37 WBC (4.5-11.0) K/mm3 RBC (3.65-5.03) M/mm3 Hgb (11.8-15.2) gm/dl Hct (35.5-45.6) % MCV (84-94) fl MCH (28-32) pg MCHC (32-34) % RDW (13.2-15.2) % Plt Count (140-440) K/mm3 Lymph % (Auto) (13.4-35.0) % [place] % (Auto) (0.0-7.3) % Eos % (Auto) (0.0-4.3) % Baso % (Auto) (0.0-1.8) % Lymph # (Auto) (1.2-5.4) K/mm3 [place] # (Auto) (0.0-0.8) K/mm3 Eos # (Auto) (0.0-0.4) K/mm3 Baso # (Auto) (0.0-0.1) K/mm3 Seg Neutrophils % (40.0-70.0) % Seg Neutrophils # (1.8-7.7) K/mm3 PT (12.2-14.9) Sec. INR (0.87-1.13) APTT (24.2-36.6) Sec. Sodium (137-145) mmol/L Potassium (3.6-5.0) mmol/L Chloride (98-107) mmol/L Carbon Dioxide (22-30) mmol/L Anion Gap mmol/L BUN (9-20) mg/dL Creatinine (0.8-1.3) mg/dL Estimated GFR ml/min BUN/Creatinine Ratio % Glucose (75-100) mg/dL Lactic Acid (0.7-2.0) mmol/L Calcium (8.4-10.2) mg/dL Troponin T 0.018 (0.00-0.029) ng/mL NT-Pro-B Natriuret Pep (0-900) pg/mL Coagulation 04/02/21 Range/Units 12:04 PT 17.2 H (12.2-14.9) Sec. INR 1.27 H (0.87-1.13) APTT 58.8 H (24.2-36.6) Sec. CBC 04/02/21 Range/Units 12:04 WBC 5.8 (4.5-11.0) K/mm3 RBC 3.99 (3.65-5.03) M/mm3 Hgb 12.4 (11.8-15.2) gm/dl Hct 39.2 (35.5-45.6) % Plt Count 151 (140-440) K/mm3 Lymph # (Auto) 0.9 L (1.2-5.4) K/mm3 [place] # (Auto) 0.7 (0.0-0.8) K/mm3 Eos # (Auto) 0.2 (0.0-0.4) K/mm3 Baso # (Auto) 0.0 (0.0-0.1) K/mm3 Comprehensive Metabolic Panel 04/02/21 Range/Units 12:04 Sodium 142 (137-145) mmol/L Potassium 3.9 (3.6-5.0) mmol/L Chloride 106.7 (98-107) mmol/L Carbon Dioxide 24 (22-30) mmol/L BUN 12 (9-20) mg/dL Creatinine 1.4 H (0.8-1.3) mg/dL Glucose 79 (75-100) mg/dL Calcium 9.1 (8.4-10.2) mg/dL - Imaging and Cardiology Echo: report reviewed Cardiac cath: report reviewed EKG: report reviewed, image reviewed - EKG Interpretation EKG: no acute changes EKG interpretations - Telemetry EKG Rhythm: Sinus Rhythm - EKG Sinus rhythms and dysrhythmias: sinus rhythm AV and intraventricular conduction: 1 AV block Repolarization changes or abnormalities: nonspecific abnormality, ST segment, and/or T wave Assessment and Plan Continue IV diuresis with strict I/Os and close monitoring of renal indices. Resume Coreg 25mg BID. No ACEI/ARB due to renal fxn. Continue bASA, statin, and Imdur 30mg daily. Pt seen in conjunction with Dr. Bills, who agrees with the assessment and plan of care. - Patient Problems (1) Acute on chronic HFrEF (heart failure with reduced ejection fraction) Current Visit: Yes Status: Acute (2) Ischemic cardiomyopathy Current Visit: Yes Status: Chronic (3) Coronary artery disease Current Visit: Yes Status: Chronic Qualifiers: Qualified Code(s): I25.10 - Atherosclerotic heart disease of [place] coronary artery without angina pectoris (4) CKD (chronic kidney disease) Current Visit: Yes Status: Chronic (5) Hypertension Current Visit: Yes Status: Chronic Qualifiers: Qualified Code(s): I10 - Essential (primary) hypertension (6) Hyperlipidemia Current Visit: Yes Status: Chronic Qualifiers: Qualified Code(s): E78.2 - Mixed hyperlipidemia (7) Tobacco abuse Current Visit: Yes Status: Chronic (8) ETOH abuse Current Visit: Yes Status: Chronic (9) Medical non-compliance Current Visit: Yes Status: Chronic
[2021-04-03] MEDS: FAMOTIDINE 20 MG/2 ML INJ IV SCH ×2 (09:37→21:59)
[2021-04-03] MEDS: ASPIRIN 81 MG TAB CHEW PO SCH (09:37)
[2021-04-03] MEDS: THIAMINE 100 MG TAB PO SCH (09:37)
[2021-04-03] MEDS: MULTIVITAMINS ,THERAPEUTIC TAB PO SCH (09:37)
[2021-04-03] MEDS: FOLIC ACID 1 MG TAB PO SCH (09:37)
--- NOTE | 2021-04-03 11:12 | Progress Note ---
Assessment and Plan Assessment and plan: Hospital course to date: 04/03: Clinical improvement noted from admission. Will continue GDMT and diure sis with lasix. Echo pending. Will follow cardiology recommendations. Assessment and Plan: (1) Acute exacerbation of Systolic CHF (congestive heart failure) Current Visit: Yes Status: Acute Qualifiers: Heart failure type: combined systolic and diastolic Qualified Code(s): I50.43 - Acute on chronic combined systolic (congestive) and diastolic (congestive) heart failure Plan to address problem: Patient is compliant with home medications. CXR on admission: mild edema, small rt pleural effusion. Daily weights Daily intake and output Echocardiogram for ejection fraction, last known ef 40-45%. IV Lasix 40 mg every 12hr , follow K and Cr GDMT: coreg, lasix. May consider ru-i Cardiology following (2) YESSENIA vs CKD Current Visit: Yes Status: Chronic Qualifiers: Hypertension type: primary hypertension Qualified Code(s): I10 - Essential (primary) hypertension Plan to address problem: - Admission Cr: 1.4, Baseline Cr: 1.1-1.2, unclear if 1.4 is patient's new baseline - etiology: likely cardiorenal - avoid nephrotoxic agents - monitor I/O's - renal adjust medications - daily renal profile (3) Hypertension Current Visit: Yes Status: Chronic Qualifiers: Hypertension type: primary hypertension Qualified Code(s): I10 - Essential (primary) hypertension Plan to address problem: Continue home antihypertensives and adjust medications as necessary (4) Hyperlipidemia Current Visit: Yes Status: Chronic Qualifiers: Hyperlipidemia type: mixed hyperlipidemia Qualified Code(s): E78.2 - Mixed hyperlipidemia Plan to address problem: Continue statin and aspirin (5) Coronary artery disease Current Visit: Yes Status: Chronic Plan to address problem: Continue isosorbide and aspirin (6) DVT prophylaxis Current Visit: No Status: Acute Plan to address problem: Patient on anticoagulation and GI prophylaxis History Interval history: No acute complaints. States that his breathing is improved from admission. Still continues to have some lower extremity swelling however there is some improvement with IV Lasix per patient Hospitalist Physical - Physical exam Narrative exam: Physical Exam: VITAL SIGNS: Reviewed. GENERAL: The patient appears normally developed, Vital signs as documented. HEAD: No signs of head trauma. EYES: Pupils are equal. Extraocular motions intact. EARS: Hearing grossly intact. MOUTH: Oropharynx is normal. NECK: No adenopathy, no JVD. CHEST: Good respiratory effort. Bibasilar rales CARDIAC: Regular rate and rhythm. S1 and S2, without murmurs, gallops, or rubs. VASCULAR: Still some significant 2+ bilateral lower extremity edema, some improvement noted on exam. Peripheral pulses normal and equal in all extremities. ABDOMEN: Soft, non tender and non distended. No rebound or guarding, and no masses palpated. Bowel Sounds normal. MUSCULOSKELETAL: Good range of motion of all major joints. Extremities without clubbing, cyanosis or edema. NEUROLOGIC EXAM: Alert and oriented x4. no focal sensory or strength deficits. PSYCHIATRIC: Mood normal. SKIN: detail exam as documented in skin assessment - Constitutional Vitals: Temp Pulse Resp BP Pulse Ox 98.6 F 72 18 147/69 96 04/03/21 03:42 04/03/21 04:31 04/03/21 03:42 04/03/21 03:42 04/03/21 08:42 General appearance: Present: mild distress, well-nourished HEART Score - HEART Score Age: > 65 Risk factors: > 3 risk factors or hx of atherosclerotic disease Troponin: Troponin T 0.018 ng/mL (0.00-0.029) 04/02/21 15:37 Troponin: 1-3x normal limit - Critical Actions Critical Actions: 4-6 pts:12-16.6% risk of adverse cardiac event. Should be admitted Results - Labs CBC & Chem 7: 04/02/21 12:04 04/02/21 12:04 Labs: Laboratory Last Values WBC 5.8 K/mm3 (4.5-11.0) 04/02/21 12:04 RBC 3.99 M/mm3 (3.65-5.03) 04/02/21 12:04 Hgb 12.4 gm/dl (11.8-15.2) 04/02/21 12:04 Hct 39.2 % (35.5-45.6) 04/02/21 12:04 MCV 98 fl (84-94) H 04/02/21 12:04 MCH 31 pg (28-32) 04/02/21 12:04 MCHC 32 % (32-34) 04/02/21 12:04 RDW 16.7 % (13.2-15.2) H 04/02/21 12:04 Plt Count 151 K/mm3 (140-440) 04/02/21 12:04 Lymph % (Auto) 16.5 % (13.4-35.0) 04/02/21 12:04 [place] % (Auto) 12.0 % (0.0-7.3) H 04/02/21 12:04 Eos % (Auto) 3.0 % (0.0-4.3) 04/02/21 12:04 Baso % (Auto) 0.5 % (0.0-1.8) 04/02/21 12:04 Lymph # (Auto) 0.9 K/mm3 (1.2-5.4) L 04/02/21 12:04 [place] # (Auto) 0.7 K/mm3 (0.0-0.8) 04/02/21 12:04 Eos # (Auto) 0.2 K/mm3 (0.0-0.4) 04/02/21 12:04 Baso # (Auto) 0.0 K/mm3 (0.0-0.1) 04/02/21 12:04 Seg Neutrophils % 68.0 % (40.0-70.0) 04/02/21 12:04 Seg Neutrophils # 3.9 K/mm3 (1.8-7.7) 04/02/21 12:04 PT 17.2 Sec. (12.2-14.9) H 04/02/21 12:04 INR 1.27 (0.87-1.13) H 04/02/21 12:04 APTT 58.8 Sec. (24.2-36.6) H 04/02/21 12:04 Sodium 142 mmol/L (137-145) 04/02/21 12:04 Potassium 3.9 mmol/L (3.6-5.0) 04/02/21 12:04 Chloride 106.7 mmol/L (98-107) 04/02/21 12:04 Carbon Dioxide 24 mmol/L (22-30) 04/02/21 12:04 Anion Gap 15 mmol/L 04/02/21 12:04 BUN 12 mg/dL (9-20) 04/02/21 12:04 Creatinine 1.4 mg/dL (0.8-1.3) H 04/02/21 12:04 Estimated GFR > 60 ml/min 04/02/21 12:04 BUN/Creatinine Ratio 9 % 04/02/21 12:04 Glucose 79 mg/dL (75-100) 04/02/21 12:04 Lactic Acid 1.20 mmol/L (0.7-2.0) 04/02/21 12:04 Calcium 9.1 mg/dL (8.4-10.2) 04/02/21 12:04 Troponin T 0.018 ng/mL (0.00-0.029) 04/02/21 15:37 NT-Pro-B Natriuret Pep 09076 pg/mL (0-900) H 04/02/21 12:04 Microbiology: Microbiology 04/02/21 12:04 Peripheral/Venous Blood Culture - Preliminary Culture in Progress 04/02/21 12:04 Peripheral/Venous Blood Culture - Preliminary Culture in Progress [place]/IV: Voiding Method Urinal Active Medications - Current Medications Current Medications: Generic Name Dose Route Start Last Admin Trade Name Freq PRN Reason Stop Dose Admin Acetaminophen 650 mg 04/03/21 00:29 Acetaminophen 325 Mg Tab PO Q4H PRN Pain MILD(1-3)/Fever >100.5/CISNEROS Aspirin 81 mg 04/03/21 10:00 04/03/21 09:37 Aspirin 81 Mg Tab Chew PO 81 mg QDAY TYRONE Administration Atorvastatin Calcium 40 mg 04/03/21 22:00 Atorvastatin 40 Mg Tab PO QHS TYRONE Carvedilol 6.25 mg 04/03/21 01:00 04/03/21 09:37 Carvedilol 6.25 Mg Tab PO 6.25 mg BID TYRONE Administration Famotidine 20 mg 04/03/21 10:00 04/03/21 09:37 Famotidine 20 Mg/2 Ml Inj IV 20 mg BID TYRONE Administration Folic Acid 1 mg 04/03/21 10:00 04/03/21 09:37 Folic Acid 1 Mg Tab PO 1 mg QDAY TYRONE Administration Furosemide 40 mg 04/03/21 06:00 04/03/21 07:20 Furosemide 40 Mg/4 Ml Inj IV 40 mg 0600,1800 TYRONE Administration Heparin Sodium (Porcine) 5,000 unit 04/03/21 00:45 04/03/21 09:37 Heparin 5,000 Unit/1 Ml Vial SUB-Q 5,000 unit Q12HR TYRONE Administration Hydromorphone HCl 0.5 mg 04/03/21 00:29 Hydromorphone 1 Mg/1 Ml Inj IV Q3H PRN Pain , Severe (7-10) Isosorbide Mononitrate 30 mg 04/03/21 10:00 04/03/21 09:37 Isosorbide Mononitrate Er 30 Mg Tab PO 30 mg QDAY TYRONE Administration Metoclopramide HCl 10 mg 04/03/21 00:29 Metoclopramide 10 Mg/2 Ml Inj IV Q6H PRN Nausea And Vomiting Multivitamins 1 each 04/03/21 10:00 04/03/21 09:37 Multivitamins ,Therapeutic Tab PO 1 each QDAY TYRONE Administration Ondansetron HCl 4 mg 04/03/21 00:29 Ondansetron 4 Mg/2 Ml Inj IV Q8H PRN Nausea And Vomiting Oxycodone/Acetaminophen 1 tab 04/03/21 00:29 Oxycodone /Acetaminophen 5-325mg Tab PO Q6H PRN Pain, Moderate (4-6) Potassium Chloride 20 meq 04/03/21 01:00 04/03/21 09:37 Potassium Chloride Er 20 Meq Tab PO 20 meq BID TYRONE Administration Sodium Chloride 10 ml 04/03/21 01:00 04/03/21 09:37 Sodium Chloride 0.9% 10 Ml Flush Syringe IV 10 ml BID TYRONE Administration Sodium Chloride 10 ml 04/03/21 00:29 Sodium Chloride 0.9% 10 Ml Flush Syringe IV PRN PRN LINE FLUSH Thiamine HCl 100 mg 04/03/21 10:00 04/03/21 09:37 Thiamine 100 Mg Tab PO 100 mg QDAY TYRONE Administration
--- NOTE | 2021-04-03 11:53 | Electrocardiograph Report ---
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
--- NOTE | 2021-04-03 11:57 | Electrocardiograph Report ---
[facility] Test Date: 2021-04-03 Test Time: 07:12:31 Pat Name: ROVERTO DANIELLE Department: Room: A472 1 Gender: M Cable Splicer: NOAM : 1950 Requested By: KENDAL PARRY Order Number: [id number] Reading MD: Mak Bills Measurements Intervals [place] Rate: 76 P: 60 IA: 274 QRS: -73 QRSD: 111 T: 132 QT: 408 QTc: 458 Interpretive Statements Sinus rhythm Prolonged IA interval Left anterior fascicular block Nonspecific T abnormalities, lateral leads No previous ECG available for comparison Electronically Signed On 04-03-2021 11:57:13 EDT by Mak Bills
[2021-04-03] MEDS: hydrALAZINE 25 MG TAB PO SCH ×2 (14:15→21:59)
[2021-04-03] MEDS ORDERED: carvediloL 6.25 MG TAB PO SCH (22:00)
[2021-04-04] MEDS: hydrALAZINE 25 MG TAB PO SCH ×2 (05:26→22:32)
[2021-04-04] MEDS: FUROSEMIDE 40 MG/4 ML INJ IV SCH (05:26)
[2021-04-04 06:31] LABS: Hematocrit 34.5 % (35.5-45.6); Hemoglobin 11.4 gm/dl (11.8-15.2); Mean Corpuscular HGB Conc 33 % (32-34); Mean Corpuscular Volume 96 fl (84-94); Platelet Count 124 K/mm3 (140-440); Red Blood Count 3.62 M/mm3 (3.65-5.03); Red Cell Distribution Width 15.9 % (13.2-15.2)
[2021-04-04 06:47] LABS: Calcium 8.5 mg/dL (8.4-10.2)
[2021-04-04] MEDS ORDERED: hydrALAZINE 25 MG TAB PO SCH (10:00)
[2021-04-04] MEDS: HEPARIN 5,000 UNIT/1 ML VIAL SUB-Q SCH ×2 (10:40→22:33)
[2021-04-04] MEDS: FAMOTIDINE 20 MG/2 ML INJ IV SCH (10:40)
[2021-04-04] MEDS: FOLIC ACID 1 MG TAB PO SCH (10:40)
[2021-04-04] MEDS: MULTIVITAMINS ,THERAPEUTIC TAB PO SCH (10:40)
[2021-04-04] MEDS: POTASSIUM CHLORIDE ER 20 MEQ TAB PO SCH ×2 (10:40→22:31)
[2021-04-04] MEDS: THIAMINE 100 MG TAB PO SCH (10:41)
[2021-04-04] MEDS: ASPIRIN 81 MG TAB CHEW PO SCH (10:41)
[2021-04-04 10:45] LABS: Eosinophils # (Auto) 0.1 K/mm3 (0.0-0.4); Eosinophils % (Auto) 2.5 % (0.0-4.3); Monocytes # (Auto) 0.9 K/mm3 (0.0-0.8)
[2021-04-04] MEDS: carvediloL 12.5 MG TAB PO SCH ×2 (11:05→22:30)
--- NOTE | 2021-04-04 11:20 | Progress Note ---
<ELAN GARCIA - Last Filed: 04/04/21 11:15> Assessment and Plan Continue IV diuresis for today. Will transition to Lasix PO tomorrow Decrease Coreg 12.5mgPO BID due to 8second pause overnight No ACEI/ARB due to renal fxn. Continue bASA, statin, and Imdur 30mg daily. If patient is stable possible discharge in AM Patient has a follow up appointment with Dr. Davenport, [facility], on 04/14/2021 at 1pm in our [place] office Pt seen in conjunction with Dr. Bills, who agrees with the assessment and plan of care. - Patient Problems (1) Acute on chronic HFrEF (heart failure with reduced ejection fraction) Current Visit: Yes Status: Acute (2) CKD (chronic kidney disease) Current Visit: Yes Status: Chronic (3) Coronary artery disease Current Visit: Yes Status: Chronic Qualifiers: Coronary Disease-Associated Artery/Lesion type: [place] artery [place] vs. transplanted heart: [place] heart Associated angina: without angina Qualified Code(s): I25.10 - Atherosclerotic heart disease of [place] coronary artery without angina pectoris (4) ETOH abuse Current Visit: Yes Status: Chronic (5) Hyperlipidemia Current Visit: Yes Status: Chronic Qualifiers: Hyperlipidemia type: mixed hyperlipidemia Qualified Code(s): E78.2 - Mixed hyperlipidemia (6) Hypertension Current Visit: Yes Status: Chronic Qualifiers: Hypertension type: primary hypertension Qualified Code(s): I10 - Essential (primary) hypertension (7) Ischemic cardiomyopathy Current Visit: Yes Status: Chronic (8) Medical non-compliance Current Visit: Yes Status: Chronic Subjective Date of service: 04/04/21 Principal diagnosis: Acute on chronic HFrEF Interval history: Patient in bed in no acute distress Sinus 74 with 1st degree block. Patiet had 8 second pause at 00:59 when using bathroom. Patient reports no symptoms at time of event Objective Vital Signs Temp Pulse Resp BP Pulse Ox 04/04/21 07:53 98.8 F 18 155/75 04/04/21 05:26 72 149/70 04/04/21 03:25 98.6 F 67 18 149/71 90 04/03/21 23:23 98.8 F 68 18 140/59 92 04/03/21 21:59 67 135/65 04/03/21 20:31 92 04/03/21 19:29 66 04/03/21 19:12 98.8 F 67 16 135/65 92 04/03/21 15:39 98.6 F 73 20 121/62 94 04/03/21 12:57 98.1 F 71 20 122/57 91 - Physical Examination General: No Apparent Distress HEENT: Positive: EOMI, Normocephaly, Mucus Membranes Moist Neck: Positive: neck supple, trachea midline. Negative: JVD/HJR Cardiac: Positive: Reg Rate and Rhythm Lungs: Positive: Decreased Breath Sounds Neuro: Positive: Grossly Intact Abdomen: Positive: Soft. Negative: Tender Skin: Positive: Other (chronic changes). Negative: Rash Extremities: Present: upper extr. pulses, lower extr. pulses, +1 Edema, warm - Labs and Meds Cardiac Enzymes 04/04/21 Range/Units 04:35 AST 17 (5-40) units/L CBC 04/04/21 Range/Units 04:35 WBC 5.6 (4.5-11.0) K/mm3 RBC 3.62 L (3.65-5.03) M/mm3 Hgb 11.4 L (11.8-15.2) gm/dl Hct 34.5 L (35.5-45.6) % Plt Count 124 L (140-440) K/mm3 [place] # (Auto) 0.9 H (0.0-0.8) K/mm3 Eos # (Auto) 0.1 (0.0-0.4) K/mm3 Baso # (Auto) 0.0 (0.0-0.1) K/mm3 Comprehensive Metabolic Panel 04/04/21 Range/Units 04:35 Sodium 143 (137-145) mmol/L Potassium 3.6 (3.6-5.0) mmol/L Chloride 104.1 (98-107) mmol/L Carbon Dioxide 25 (22-30) mmol/L BUN 17 (9-20) mg/dL Creatinine 1.7 H (0.8-1.3) mg/dL Glucose 71 L (75-100) mg/dL Calcium 8.5 (8.4-10.2) mg/dL AST 17 (5-40) units/L ALT 11 (7-56) units/L Alkaline Phosphatase 130 H (35-129) units/L Total Protein 7.1 (6.3-8.2) g/dL Albumin 3.0 L (3.9-5) g/dL - Imaging and Cardiology EKG: report reviewed, image reviewed Echo: report reviewed (Echo 05/2020 - EF 40-45%, grade II diastolic dysfxn. ), other (Echo 02/2020 - EF 20-25%, LV mildly dilated, elevated mean LA pressure, elevated LVEDP, RVSP 50-55mmHg. ) Cardiac cath: report reviewed ([facility] 02/2020 - multivessel CAD w/left main patent, LAD mid 80%, diagonal 1 ostial 95% (small to medium caliber vessel), Cfx prox 70%, OM1 patent with mild luminal irregularities, OM2 100% with left to left collaterals, RCA is large dominant vessel with diffuse disease 20-30% with 100% distally, severe) - Telemetry EKG Rhythm: Sinus Rhythm - EKG Sinus rhythms and dysrhythmias: sinus rhythm AV and intraventricular conduction: 1 AV block Repolarization changes or abnormalities: nonspecific abnormality, ST segment, and/or T wave <DAMIR BILLS R - Last Filed: 04/04/21 12:25> Assessment and Plan pt pause was limited and no symptoms and probably when sleeping, decrease coreg and monitor and change to po lasix Objective Vital Signs Temp Pulse Resp BP Pulse Ox 04/04/21 07:53 98.8 F 18 155/75 04/04/21 05:26 72 149/70 04/04/21 03:25 98.6 F 67 18 149/71 90 04/03/21 23:23 98.8 F 68 18 140/59 92 04/03/21 21:59 67 135/65 04/03/21 20:31 92 04/03/21 19:29 66 04/03/21 19:12 98.8 F 67 16 135/65 92 04/03/21 15:39 98.6 F 73 20 121/62 94 04/03/21 12:57 98.1 F 71 20 122/57 91 - Labs and Meds Cardiac Enzymes 04/04/21 Range/Units 04:35 AST 17 (5-40) units/L CBC 04/04/21 Range/Units 04:35 WBC 5.6 (4.5-11.0) K/mm3 RBC 3.62 L (3.65-5.03) M/mm3 Hgb 11.4 L (11.8-15.2) gm/dl Hct 34.5 L (35.5-45.6) % Plt Count 124 L (140-440) K/mm3 [place] # (Auto) 0.9 H (0.0-0.8) K/mm3 Eos # (Auto) 0.1 (0.0-0.4) K/mm3 Baso # (Auto) 0.0 (0.0-0.1) K/mm3 Comprehensive Metabolic Panel 04/04/21 Range/Units 04:35 Sodium 143 (137-145) mmol/L Potassium 3.6 (3.6-5.0) mmol/L Chloride 104.1 (98-107) mmol/L Carbon Dioxide 25 (22-30) mmol/L BUN 17 (9-20) mg/dL Creatinine 1.7 H (0.8-1.3) mg/dL Glucose 71 L (75-100) mg/dL Calcium 8.5 (8.4-10.2) mg/dL AST 17 (5-40) units/L ALT 11 (7-56) units/L Alkaline Phosphatase 130 H (35-129) units/L Total Protein 7.1 (6.3-8.2) g/dL Albumin 3.0 L (3.9-5) g/dL
--- NOTE | 2021-04-04 13:07 | Progress Note ---
Assessment and Plan Assessment and plan: Hospital course to date: 04/03: Clinical improvement noted from admission. Will continue GDMT and diure sis with lasix. Echo pending. Will follow cardiology recommendations. 04/04: Improvement of lower extremity edema. Will transition Lasix IV to oral tomorrow. Decreased dose due to slight worsening of renal function. anticipated d/c tomorrow. Assessment and Plan: (1) Acute exacerbation of Systolic CHF (congestive heart failure) Current Visit: Yes Status: Acute Qualifiers: Heart failure type: combined systolic and diastolic Qualified Code(s): I50.43 - Acute on chronic combined systolic (congestive) and diastolic (congestive) heart failure Plan to address problem: Patient is compliant with home medications. CXR on admission: mild edema, small rt pleural effusion. Daily weights Daily intake and output Echocardiogram for ejection fraction, last known ef 40-45%. IV Lasix 40 mg every 24hr , follow K and Cr GDMT: coreg, lasix, imdur . hold ru/arb due to renal fx. Cardiology following (2) YESSENIA on CKD Current Visit: Yes Status: Chronic Qualifiers: Hypertension type: primary hypertension Qualified Code(s): I10 - Essential (primary) hypertension Plan to address problem: - Admission Cr: 1.4, Baseline Cr: 1.1-1.2, unclear if 1.4 is patient's new baseline - etiology: likely cardiorenal - avoid nephrotoxic agents - monitor I/O's - renal adjust medications - daily renal profile -Creatinine worsened to 1.7 on 04/04. -We will back off of Lasix (3) Hypertension Current Visit: Yes Status: Chronic Qualifiers: Hypertension type: primary hypertension Qualified Code(s): I10 - Essential (primary) hypertension Plan to address problem: Continue home antihypertensives and adjust medications as necessary (4) Hyperlipidemia Current Visit: Yes Status: Chronic Qualifiers: Hyperlipidemia type: mixed hyperlipidemia Qualified Code(s): E78.2 - Mixed hyperlipidemia Plan to address problem: Continue statin and aspirin (5) Coronary artery disease Current Visit: Yes Status: Chronic Plan to address problem: Continue isosorbide and aspirin and statin (6) DVT prophylaxis Current Visit: No Status: Acute Plan to address problem: Patient on anticoagulation and GI prophylaxis History Interval history: No acute complaints. Hospitalist Physical - Physical exam Narrative exam: Physical Exam: VITAL SIGNS: Reviewed. GENERAL: The patient appears normally developed, Vital signs as documented. HEAD: No signs of head trauma. EYES: Pupils are equal. Extraocular motions intact. EARS: Hearing grossly intact. MOUTH: Oropharynx is normal. NECK: No adenopathy, no JVD. CHEST: Good respiratory effort. Bibasilar rales, interval improvement. CARDIAC: Regular rate and rhythm. S1 and S2, without murmurs, gallops, or rubs. VASCULAR: Significant improvement in lower extremity edema noted on exam. Peripheral pulses normal and equal in all extremities. ABDOMEN: Soft, non tender and non distended. No rebound or guarding, and no masses palpated. Bowel Sounds normal. MUSCULOSKELETAL: Good range of motion of all major joints. Extremities without clubbing, cyanosis or edema. NEUROLOGIC EXAM: Alert and oriented x4. no focal sensory or strength deficits. PSYCHIATRIC: Mood normal. SKIN: detail exam as documented in skin assessment - Constitutional Vitals: Temp Pulse Resp BP Pulse Ox 97.9 F 76 18 139/68 90 04/04/21 12:27 04/04/21 12:27 04/04/21 12:27 04/04/21 12:27 04/04/21 12:27 General appearance: Present: mild distress, well-nourished HEART Score - HEART Score Age: > 65 Risk factors: > 3 risk factors or hx of atherosclerotic disease Troponin: Troponin T 0.018 ng/mL (0.00-0.029) 04/02/21 15:37 Troponin: 1-3x normal limit - Critical Actions Critical Actions: 4-6 pts:12-16.6% risk of adverse cardiac event. Should be admitted Results - Labs CBC & Chem 7: 04/04/21 04:35 04/04/21 04:35 Labs: Laboratory Last Values WBC 5.6 K/mm3 (4.5-11.0) 04/04/21 04:35 RBC 3.62 M/mm3 (3.65-5.03) L 04/04/21 04:35 Hgb 11.4 gm/dl (11.8-15.2) L 04/04/21 04:35 Hct 34.5 % (35.5-45.6) L 04/04/21 04:35 MCV 96 fl (84-94) H 04/04/21 04:35 MCH 32 pg (28-32) 04/04/21 04:35 MCHC 33 % (32-34) 04/04/21 04:35 RDW 15.9 % (13.2-15.2) H 04/04/21 04:35 Plt Count 124 K/mm3 (140-440) L 04/04/21 04:35 Lymph % (Auto) 16.5 % (13.4-35.0) 04/02/21 12:04 [place] % (Auto) [employer] 04/04/21 04:35 Eos % (Auto) 2.5 % (0.0-4.3) 04/04/21 04:35 Baso % (Auto) 0.5 % (0.0-1.8) 04/02/21 12:04 Lymph # (Auto) 0.9 K/mm3 (1.2-5.4) L 04/02/21 12:04 [place] # (Auto) 0.9 K/mm3 (0.0-0.8) H 04/04/21 04:35 Eos # (Auto) 0.1 K/mm3 (0.0-0.4) 04/04/21 04:35 Baso # (Auto) 0.0 K/mm3 (0.0-0.1) 04/04/21 04:35 Seg Neutrophils % 58.8 % (40.0-70.0) 04/04/21 04:35 Seg Neutrophils # 3.2 K/mm3 (1.8-7.7) 04/04/21 04:35 PT 17.2 Sec. (12.2-14.9) H 04/02/21 12:04 INR 1.27 (0.87-1.13) H 04/02/21 12:04 APTT 58.8 Sec. (24.2-36.6) H 04/02/21 12:04 Sodium 143 mmol/L (137-145) 04/04/21 04:35 Potassium 3.6 mmol/L (3.6-5.0) 04/04/21 04:35 Chloride 104.1 mmol/L (98-107) 04/04/21 04:35 Carbon Dioxide 25 mmol/L (22-30) 04/04/21 04:35 Anion Gap 18 mmol/L 04/04/21 04:35 BUN 17 mg/dL (9-20) 04/04/21 04:35 Creatinine 1.7 mg/dL (0.8-1.3) H 04/04/21 04:35 Estimated GFR 48 ml/min 04/04/21 04:35 BUN/Creatinine Ratio 10 % 04/04/21 04:35 Glucose 71 mg/dL (75-100) L 04/04/21 04:35 Lactic Acid 1.20 mmol/L (0.7-2.0) 04/02/21 12:04 Calcium 8.5 mg/dL (8.4-10.2) 04/04/21 04:35 Total Bilirubin 1.90 mg/dL (0.1-1.2) H 04/04/21 04:35 AST 17 units/L (5-40) 04/04/21 04:35 ALT 11 units/L (7-56) 04/04/21 04:35 Alkaline Phosphatase 130 units/L (35-129) H 04/04/21 04:35 Troponin T 0.018 ng/mL (0.00-0.029) 04/02/21 15:37 NT-Pro-B Natriuret Pep 89390 pg/mL (0-900) H 04/02/21 12:04 Total Protein 7.1 g/dL (6.3-8.2) 04/04/21 04:35 Albumin 3.0 g/dL (3.9-5) L 04/04/21 04:35 Albumin/Globulin Ratio 0.7 % 04/04/21 04:35 Microbiology: Microbiology 04/02/21 12:04 Peripheral/Venous Blood Culture - Preliminary NO GROWTH AFTER 48 HOURS 04/02/21 12:04 Peripheral/Venous Blood Culture - Preliminary NO GROWTH AFTER 48 HOURS [place]/IV: Voiding Method Urinal Active Medications - Current Medications Current Medications: Generic Name Dose Route Start Last Admin Trade Name Freq PRN Reason Stop Dose Admin Acetaminophen 650 mg 04/03/21 00:29 Acetaminophen 325 Mg Tab PO Q4H PRN Pain MILD(1-3)/Fever >100.5/CISNEROS Aspirin 81 mg 04/03/21 10:00 04/04/21 10:41 Aspirin 81 Mg Tab Chew PO 81 mg QDAY TYRONE Administration Atorvastatin Calcium 40 mg 04/03/21 22:00 04/03/21 21:59 Atorvastatin 40 Mg Tab PO 40 mg QHS TYRONE Administration Carvedilol 12.5 mg 04/04/21 11:00 Carvedilol 12.5 Mg Tab PO BID [facility] Famotidine 20 mg 04/04/21 22:00 Famotidine 20 Mg Tab PO BID [facility] Folic Acid 1 mg 04/03/21 10:00 04/04/21 10:40 Folic Acid 1 Mg Tab PO 1 mg QDAY TYRONE Administration Furosemide 40 mg 04/05/21 10:00 Furosemide 40 Mg Tab PO QDAY [facility] Heparin Sodium (Porcine) 5,000 unit 04/03/21 00:45 04/04/21 10:40 Heparin 5,000 Unit/1 Ml Vial SUB-Q 5,000 unit Q12HR TYRONE Administration Hydralazine HCl 50 mg 04/04/21 22:00 Hydralazine 25 Mg Tab PO BID [facility] Hydromorphone HCl 0.5 mg 04/03/21 00:29 Hydromorphone 1 Mg/1 Ml Inj IV Q3H PRN Pain , Severe (7-10) Isosorbide Mononitrate 30 mg 04/03/21 10:00 04/04/21 10:41 Isosorbide Mononitrate Er 30 Mg Tab PO 30 mg QDAY [facility] Administration Metoclopramide HCl 10 mg 04/03/21 00:29 Metoclopramide 10 Mg/2 Ml Inj IV Q6H PRN Nausea And Vomiting Multivitamins 1 each 04/03/21 10:00 04/04/21 10:40 Multivitamins ,Therapeutic Tab PO 1 each QDAY [facility] Administration Ondansetron HCl 4 mg 04/03/21 00:29 Ondansetron 4 Mg/2 Ml Inj IV Q8H PRN Nausea And Vomiting Oxycodone/Acetaminophen 1 tab 04/03/21 00:29 Oxycodone /Acetaminophen 5-325mg Tab PO Q6H PRN Pain, Moderate (4-6) Potassium Chloride 20 meq 04/03/21 01:00 04/04/21 10:40 Potassium Chloride Er 20 Meq Tab PO 20 meq BID TYRONE Administration Sodium Chloride 10 ml 04/03/21 01:00 04/04/21 10:41 Sodium Chloride 0.9% 10 Ml Flush Syringe IV 10 ml BID TYRONE Administration Sodium Chloride 10 ml 04/03/21 00:29 Sodium Chloride 0.9% 10 Ml Flush Syringe IV PRN PRN LINE FLUSH Thiamine HCl 100 mg 04/03/21 10:00 04/04/21 10:41 Thiamine 100 Mg Tab PO 100 mg QDAY TYRONE Administration
[2021-04-04 17:15] LABS: Myelocytes # (Manual) 0.2 K/mm3; Platelet Estimate Consistent w Auto; Total Cells Counted 100
[2021-04-04] MEDS: FAMOTIDINE 20 MG TAB PO SCH (22:31)
--- NOTE | 2021-04-05 07:51 | Discharge Summary ---
Providers - Providers Date of Admission: 04/02/21 13:25 Date of discharge: 04/05/21 Attending physician: NADIA LEIJA MD 04/03/21 00:58 Consult to Physician [CONS] Routine Comment: Consulting Provider: DAMIR YANEZ Physician Instructions: Reason For Exam: CHF exacerbation Primary care physician: [employer] Hospitalization Reason for admission: Shortness of breath Condition: Stable Hospital course: Hospital course to date: 04/03: Clinical improvement noted from admission. Will continue GDMT and diuresis with lasix. Echo pending. Will follow cardiology recommendations. 04/04: Improvement of lower extremity edema. Will transition Lasix IV to oral tomorrow. Decreased dose due to slight worsening of renal function. anticipated d/c tomorrow. 04/05: Continued improvement lower extremity edema. Patient appears to be back to his baseline. We will be discharging home today. He will be sent home with prescriptions for Lasix and hydralazine. He was advised to continue Coreg, Imdur, atorvastatin. Patient has an appointment set up by cardiology. Appointment is listed below Patient has a follow up appointment with Dr. Rice, [facility], on 04/14/2021 at 1pm in our [place] office He is advised to follow-up with his primary care physician in 1 week. Assessment and Plan: (1) Acute exacerbation of Systolic CHF (congestive heart failure) Current Visit: Yes Status: Acute Qualifiers: Heart failure type: combined systolic and diastolic Qualified Code(s): I50.43 - Acute on chronic combined systolic (congestive) and diastolic (congestive) heart failure Plan to address problem: Patient is compliant with home medications. CXR on admission: mild edema, small rt pleural effusion. Daily weights Daily intake and output Echocardiogram for ejection fraction, last known ef 40-45%. IV Lasix 40 mg every 24hr , follow K and Cr GDMT: coreg, lasix, imdur . hold pamela/arb due to renal fx. Cardiology following (2) YESSENIA on CKD Current Visit: Yes Status: Chronic Qualifiers: Hypertension type: primary hypertension Qualified Code(s): I10 - Essential (primary) hypertension Plan to address problem: - Admission Cr: 1.4, Baseline Cr: 1.1-1.2, unclear if 1.4 is patient's new baseline - etiology: likely cardiorenal - avoid nephrotoxic agents - monitor I/O's - renal adjust medications - daily renal profile -Creatinine worsened to 1.7 on 04/04. -We will back off of Lasix (3) Hypertension Current Visit: Yes Status: Chronic Qualifiers: Hypertension type: primary hypertension Qualified Code(s): I10 - Essential (primary) hypertension Plan to address problem: Continue home antihypertensives and adjust medications as necessary (4) Hyperlipidemia Current Visit: Yes Status: Chronic Qualifiers: Hyperlipidemia type: mixed hyperlipidemia Qualified Code(s): E78.2 - Mixed hyperlipidemia Plan to address problem: Continue statin and aspirin (5) Coronary artery disease Current Visit: Yes Status: Chronic Plan to address problem: Continue isosorbide and aspirin and statin (6) DVT prophylaxis Current Visit: No Status: Acute Plan to address problem: Patient on anticoagulation and GI prophylaxis Disposition: 01 HOME / SELF CARE / HOMELESS Final Discharge Diagnosis (Prints w/discharge instructions): Acute exacerbation of systolic heart failure Time spent for discharge: 35 - Discharge Diagnoses (1) Acute exacerbation of CHF (congestive heart failure) Status: Acute Qualifiers: Heart failure type: combined systolic and diastolic Qualified Code(s): I50.43 - Acute on chronic combined systolic (congestive) and diastolic (congestive) heart failure (2) Acute on chronic HFrEF (heart failure with reduced ejection fraction) Status: Acute (3) Shortness of breath Status: Acute (4) CKD (chronic kidney disease) Status: Chronic (5) Coronary artery disease Status: Chronic Qualifiers: Coronary Disease-Associated Artery/Lesion type: [place] artery [place] vs. transplanted heart: [place] heart Associated angina: without angina Qualified Code(s): I25.10 - Atherosclerotic heart disease of [place] coronary artery without angina pectoris Core Measure Documentation - Palliative Care Palliative Care/ Comfort Measures: Not Applicable - Core Measures Any of the following diagnoses?: heart failure - Heart Failure Discharge Requirements PAMELA/ARB for LVSD if EF <40%: No Reason for no PAMELA/ARB: Renal impairment Beta zach at discharge: Yes Exam - Physical Exam Narrative exam: Physical Exam: VITAL SIGNS: Reviewed. GENERAL: The patient appears normally developed, Vital signs as documented. HEAD: No signs of head trauma. EYES: Pupils are equal. Extraocular motions intact. EARS: Hearing grossly intact. MOUTH: Oropharynx is normal. NECK: No adenopathy, no JVD. CHEST: Good respiratory effort. Bibasilar rales, interval improvement. CARDIAC: Regular rate and rhythm. S1 and S2, without murmurs, gallops, or rubs. VASCULAR: Significant improvement in lower extremity edema noted on exam. Per ipheral pulses normal and equal in all extremities. ABDOMEN: Soft, non tender and non distended. No rebound or guarding, and no masses palpated. Bowel Sounds normal. MUSCULOSKELETAL: Good range of motion of all major joints. Extremities without clubbing, cyanosis or edema. NEUROLOGIC EXAM: Alert and oriented x4. no focal sensory or strength deficits. PSYCHIATRIC: Mood normal. SKIN: detail exam as documented in skin assessment - Constitutional Vitals: Temp Pulse Resp BP Pulse Ox 98.3 F 71 18 139/73 94 04/05/21 04:17 04/05/21 04:17 04/05/21 04:17 04/05/21 04:17 04/05/21 04:17 Plan Follow up with: PRIMARY MD LETHA [Primary Care Provider] - 3-5 Days SAMEER RICE MD [Staff Physician] - 7 Days Prescriptions: hydrALAZINE [Apresoline TAB] 50 mg PO BID 30 Days #60 tablet Furosemide [Lasix] 20 mg PO QDAY 30 Days #30 tablet
[2021-04-05] MEDS ORDERED: FUROSEMIDE 40 MG/4 ML INJ IV SCH (10:00)
[2021-04-05] MEDS ORDERED: FUROSEMIDE 40 MG TAB PO SCH (10:00)
[2021-04-05] MEDS: hydrALAZINE 25 MG TAB PO SCH (10:18)
[2021-04-05] MEDS: FAMOTIDINE 20 MG TAB PO SCH (10:18)
[2021-04-05] MEDS: POTASSIUM CHLORIDE ER 20 MEQ TAB PO SCH (10:18)
[2021-04-05] MEDS: FOLIC ACID 1 MG TAB PO SCH (10:18)
[2021-04-05] MEDS: carvediloL 12.5 MG TAB PO SCH (10:18)
[2021-04-05] MEDS: MULTIVITAMINS ,THERAPEUTIC TAB PO SCH (10:18)
[2021-04-05] MEDS: ASPIRIN 81 MG TAB CHEW PO SCH (10:18)
[2021-04-05] MEDS: HEPARIN 5,000 UNIT/1 ML VIAL SUB-Q SCH (10:20)
[2021-04-05 11:56] VITALS: BP 136/64
== END 2021-04-05 12:45 | disposition home health service (06) | DRG 291 ==
LOC: ED 10:56 → 4A 13:25
PROVIDERS: ADMIT Internal Medicine; ATTEND Internal Medicine
DX: I13.0 Hypertensive heart and chronic kidney disease with heart failure and stage 1 through stage 4 chronic kidney disease, or unspecified chronic kidney disease (principal); I50.43 Acute on chronic combined systolic (congestive) and diastolic (congestive) heart failure; N17.9 Acute kidney failure, unspecified; I25.10 Atherosclerotic heart disease of native coronary artery without angina pectoris; I25.5 Ischemic cardiomyopathy; J44.9 Chronic obstructive pulmonary disease, unspecified; F17.200 Nicotine dependence, unspecified, uncomplicated; M10.9 Gout, unspecified; E78.2 Mixed hyperlipidemia; Z91.19 Patient's noncompliance with other medical treatment and regimen; N18.30 Chronic kidney disease, stage 3 unspecified; Z79.82 Long term (current) use of aspirin; Z82.49 Family history of ischemic heart disease and other diseases of the circulatory system
CPT/HCPCS: 36415; 71046; 80048; 80053; 82140; 83880; 84484; 85007; 85025; 85610; 85730; 87040; 93005; 99406; G0378; J1644; J1940